=== PATIENT | male | born 1970 | race Caucasian/White ===

== ENCOUNTER 2017-06-04 21:27 | Inpatient (IN) | payer OTHER ==
[2017-06-04] MEDS ORDERED: HYDROcodone/APAP 5-325MG 1 EACH TAB PO STA (23:40)
[2017-06-04] MEDS ORDERED: SODIUM CHLORIDE 0.9% 500 ML IV ONE (23:43)
[2017-06-04] MEDS ORDERED: NALOXONE 0.4 MG/ML 1 ML VIAL IV PRN (23:54)
--- NOTE | 2017-06-04 23:54 | ED ---
General Adult HPI - General Chief complaint: Skin/Abscess/Foreign Body Stated complaint: MRSA Time Seen by Provider: 06/04/17 22:03 Source: patient, family, RN notes reviewed Mode of arrival: ambulatory Limitations: no limitations - History of Present Illness Initial comments: pastchief complaint this is a 46-year-old male to complaint of painful swelling abscess anterior surface distal left thigh. He reports he is at the clinic 4 days ago was placed on Bactrim to which she sees be having ALLERGIC reaction at this time. Also abscesses bigger and more tender. Localized redness. Patient reports she has chills and doesn't feel well. Failed outpatient treatment could well be MRSA. He's never had MRSA in the past. - Related Data Home Medications Medication Instructions Recorded Confirmed Sulfamethox-Tmp 800-160Mg [Bactrim 1 tab PO Q12HR 06/04/17 06/04/17 DS 800-160 mg] Allergies Allergy/AdvReac Type Severity Reaction Status Date / Time No Known Allergies Allergy Verified 06/04/17 22:03 Review of Systems ROS Statement: Those systems with pertinent positive or pertinent negative responses have been documented in the HPI. review of systems patient states she doesn't feel well has some chills abscess with local cellulitis distal anterior surface left thigh. This needs to be incised and drained. He's been on Bactrim 4 days in the infection is not getting better. In fact the patient is having probable ALLERGIC reaction to the sulfa. No difficulty breathing. He does have a rash. All systems are reviewed. Past medical problems angina, GERD, hyperlipidemia occasional hypertension respiratory disorder. No known ALLERGIES. and now appears as though he may have an ALLERGY to sulfa. Surgeries appendectomy, hernia repair, multiple knee surgeries. Left ear surgery. ROS Other: All systems not noted in ROS Statement are negative. Past Medical History Past Medical History: Chest Pain / Angina, Diabetes Mellitus, GERD/Reflux, Hyperlipidemia, Hypertension, Respiratory Disorder Additional Past Medical History / Comment(s): dx February 2014 pleurisy, acute bronchitis,migraines, states had chest pains from pleurisy, borderline diabetic History of Any Multi-Drug Resistant Organisms: MRSA Date of last positivie culture/infection: 2016 MDRO Source:: left thigh Past Surgical History: Appendectomy, Hernia Repair, Orthopedic Surgery Additional Past Surgical History / Comment(s): left ear removed (tumor), robinson knee surgeries, Past Anesthesia/Blood Transfusion Reactions: Previous Problems w/ Anesthesia Additional Past Anesthesia/Blood Transfusion Reaction / Comment(s): takes longer to come out Past Psychological History: No Psychological Hx Reported Smoking Status: Current every day smoker Past Alcohol Use History: Occasional Past Drug Use History: None Reported General Exam - General Exam Comments Initial Comments: General: The patient is awake and alert,complaint a sensation of chills not feeling well. He has an abscess to his left anterior thigh. Vital signs temp 98.8 pulse 74 respiratory rate 18 pulse ox 97% room air blood pressure 163/89 Cardiovascular: There is a regular rate and rhythm. No murmur, rub or gallop is appreciated. Respiratory: Lungs are clear to auscultation, respirations are non-labored, breath sounds are equal. No wheezes, stridor, rales, or rhonchi. Gastrointestinal: no abdominal pain. Back: no back pain Musculoskeletal: enlarging abscess left anterior thigh. Hot red tender localized cellulitis. Neurological: no neuro deficits Skin is warm painful to touch as above Limitations: no limitations Course Vital Signs 06/04/17 06/04/17 21:28 22:31 Temperature 98.8 F 100.5 F H Pulse Rate 74 Respiratory 18 Rate Blood Pressure 163/89 O2 Sat by Pulse 97 Oximetry Procedures - Procedures Initial comment: procedure; using a sterile technique. 1% Xylocaine was used to numb the area. #18 needle was used to locate the abscess. Fluid was drained off and sent for pathology. #11 blade was used to make a stellate incision. Another one half teaspoon of purulent material removed. Sterile bandage applied after the wound was packed. Dr. Caraballo Medical Decision Making - Medical Decision Making the patient has been told to stop taking the Bactrim. He'll be admitted the hospital on vancomycin. I discussed the case with Dr. Rodrigues on-call for Dr. Dorman. Disposition Clinical Impression: Abscess of left thigh Disposition: ADMITTED IP TO THIS HOSP Condition: Fair Referrals: La Dorman DO [Primary Care Provider] - 1-2 days
[2017-06-05] MEDS: SODIUM CHLORIDE 0.9% 1,000 ML IV SCH ×6 (00:13→21:06)
[2017-06-05] MEDS ORDERED: IV VANCOMYCIN PER PHARMACY 1 EACH MISC MISCELLANE SCH (00:15)
[2017-06-05 00:28] LABS: Basophils % (A) 1 %; CH 35.4; CHCM 34.9; Eosinophils # (A) 0.4 k/uL (0-0.7); Eosinophils % (A) 8 %; HCT 47.8 % (39.0-53.0); HDW 2.24; HGB 15.9 gm/dL (13.0-17.5); Luc # (Auto) 0.06; Luc % (Auto) 1; Lymphocytes # (A) 0.4 k/uL (1.0-4.8); Lymphocytes % (A) 8 %; MCH 33.9 pg (25.0-35.0); MCHC 33.2 g/dL (31.0-37.0); MCV 101.8 fL (80.0-100.0); Macrocytosis Slight; Mean Platelet Volume 7.3; Monocytes # (A) 0.3 k/uL (0-1.0); Monocytes % (A) 6 %; Neutrophils % (A) 77 %; RBC 4.69 m/uL (4.30-5.90); RDW 13.6 % (11.5-15.5); WBC 5.3 k/uL (3.8-10.6); WBC (Perox) 5.16
[2017-06-05] MEDS ORDERED: ACETAMINOPHEN TAB 325 MG TAB PO STA (00:28)
[2017-06-05] MEDS: ACETAMINOPHEN TAB 325 MG TAB PO PRN ×2 (00:30→19:25)
[2017-06-05 00:38] LABS: ALT 61 U/L (21-72); AST 46 U/L (17-59); Alkaline Phosphatase 69 U/L (38-126); Anion Gap 13 mmol/L; Blood Urea Nitrogen 10 mg/dL (9-20); Calcium 9.2 mg/dL (8.4-10.2); Carbon Dioxide 23 mmol/L (22-30); Chloride 101 mmol/L (98-107); Glucose 94 mg/dL (74-99); Non-African American GFR(MDRD) >60 (>60 ml/min/1.73 sqM); Potassium 4.1 mmol/L (3.5-5.1); Sodium 137 mmol/L (137-145); Total Bilirubin 0.5 mg/dL (0.2-1.3); Total Protein 6.9 g/dL (6.3-8.2)
[2017-06-05] MEDS ORDERED: VANCOMYCIN 1,500 MG in SODIUM CHLORIDE 0.9% 250 ML IVPB ONE (01:00)
[2017-06-05 02:16] VITALS: BMI 23.7
[2017-06-05] MEDS: HYDROmorphone 1 MG/ML 1 ML SYRINGE IV PRN ×2 (02:41→12:53)
[2017-06-05 07:17] LABS: Glucose,Whole Blood 84 mg/dL (75-99)
[2017-06-05] MEDS: VANCOMYCIN 1,500 MG in SODIUM CHLORIDE 0.9% 250 ML IVPB SCH ×2 (08:27→19:29)
[2017-06-05 11:58] LABS: Glucose,Whole Blood 96 mg/dL (75-99)
--- NOTE | 2017-06-05 12:08 | P.HPIM ---
History of Present Illness H&P Date: 06/05/17 Chief Complaint: left thigh swelling and redness this is a 46-year-old gentleman with no significant past medical history who presented to the emergency room with worsening redness, swelling, and pain involving his left thigh. Patient said that he noticed the redness a few days ago all of a sudden. He denies any trauma, wound, or pustular formation. He said that he was only red and inflamed and he went to see his primary care presented physician who prescribed him a course of Bactrim. Patient said that he had some reaction to the antibiotic was not able to take it as prescribed. He also noted that his thighs getting more red and swollen. He was having a lot of pain. He decided to come to the emergency room for further evaluation. And he was found to have evidence of abscess formation involving the anterior aspect of the left thigh. He had an I&D performed in the emergency room and the wound is currently packed. There is significant redness surrounding the wound. Skin is warm to touch with moderate tenderness. There is currently on broad-spectrum antibiotic with vancomycin. Review of Systems Review of system: 14 points review of systems were obtained and were negative except to what were mentioned in the HPI. Past Medical History Past Medical History: Chest Pain / Angina, Diabetes Mellitus, GERD/Reflux, Hyperlipidemia, Hypertension, Respiratory Disorder Additional Past Medical History / Comment(s): dx February 2014 pleurisy, acute bronchitis,migraines, states had chest pains from pleurisy, borderline diabetic History of Any Multi-Drug Resistant Organisms: MRSA Date of last positivie culture/infection: 2016 MDRO Source:: left thigh Past Surgical History: Appendectomy, Hernia Repair, Orthopedic Surgery Additional Past Surgical History / Comment(s): left ear removed (tumor), robinson knee surgeries, Past Anesthesia/Blood Transfusion Reactions: Previous Problems w/ Anesthesia Additional Past Anesthesia/Blood Transfusion Reaction / Comment(s): takes longer to come out Past Psychological History: No Psychological Hx Reported Smoking Status: Current every day smoker Past Alcohol Use History: Occasional Past Drug Use History: None Reported - Past Family History Mother Family Medical History: No Reported History Medications and Allergies Home Medications Medication Instructions Recorded Confirmed Type Sulfamethox-Tmp 800-160Mg [Bactrim 1 tab PO Q12HR 06/04/17 06/04/17 History DS 800-160 mg] Allergies Allergy/AdvReac Type Severity Reaction Status Date / Time sulfamethoxazole Allergy Rash/Hives Verified 06/05/17 02:09 [From Bactrim] trimethoprim [From Bactrim] Allergy Rash/Hives Verified 06/05/17 02:09 Physical Exam Vitals: Vital Signs Temp Pulse Pulse Resp BP BP BP 06/05/17 07:00 99.6 F 82 16 119/76 06/05/17 02:07 99.3 F 82 16 121/56 06/05/17 01:31 101.2 F H 93 18 139/64 06/05/17 00:20 102.6 F H 84 20 165/74 06/04/17 22:31 100.5 F H 06/04/17 21:28 98.8 F 74 18 163/89 Pulse Ox 06/05/17 07:00 95 06/05/17 02:07 95 06/05/17 01:31 95 06/05/17 00:20 99 06/04/17 22:31 06/04/17 21:28 97 Intake and Output 06/04/17 06/05/17 06/05/17 22:59 06:59 14:59 Intake Total 1150 Balance 1150 Intake: Intake, IV Titration 750 Amount Vancomycin 1,500 mg In 750 Sodium Chloride 0.9% 250 ml @ 125 mls/hr IVPB Q12H [facility] Rx#:[id number] Oral 400 Other: Weight 79.379 kg 79.379 kg General: The patient is awake and alert, in no distress Eye: there is normal conjunctiva bilaterally. Neck: The neck is supple, there is no JVD. Cardiovascular: Normal S1-S2, no S3-S4, no murmurs. Respiratory: Lungs clear to auscultation bilaterally Gastrointestinal: Abdomen is soft, nontender Musculoskeletal: There is no pedal edema. Neurological:. Speech is normal. Skin: as noted in HPI Results CBC & Chem 7: 06/05/17 00:15 06/05/17 00:15 Labs: Abnormal Lab Results - Last 24 Hours (Table) 06/05/17 Range/Units 00:15 MCV 101.8 H (80.0-100.0) fL Lymphocytes # 0.4 L (1.0-4.8) k/uL Microbiology - Last 24 Hours (Table) 06/04/17 23:35 Wound Culture - Preliminary Leg - Left Thrombosis Risk Factor Assmnt - Choose All That Apply Each Factor Represents 1 point: Age 41-60 years Other Risk Factors: No Other congenital or acquired thrombophilia - If yes, enter type in comment: No Thrombosis Risk Factor Assessment Total Risk Factor Score: 1 Thrombosis Risk Factor Assessment Level: Low Risk Assessment and Plan Plan: 1. Left thigh abscess with surrounding cellulitis 2. Sepsis on presentation Today, I reviewed his medication list lab work results. Will continue broad spectrum antibiotic with IV vancomycin. Continue IV fluids. Awaiting blood culture. Pain control. I would consult infectious disease for further evaluation. Patient was updated about his current medical condition.
[2017-06-05 17:14] LABS: Glucose,Whole Blood 112 mg/dL (75-99)
[2017-06-05 20:54] LABS: Glucose,Whole Blood 124 mg/dL (75-99)
[2017-06-05] MEDS: HEPARIN SODIUM,PORCINE 5,000 UNIT/ML 1 ML VIAL SQ SCH (21:29)
[2017-06-06] MEDS: HYDROmorphone 1 MG/ML 1 ML SYRINGE IV PRN ×2 (05:07→08:29)
[2017-06-06] MEDS: SODIUM CHLORIDE 0.9% 1,000 ML IV SCH ×4 (06:56→18:01)
[2017-06-06] MEDS: VANCOMYCIN 1,500 MG in SODIUM CHLORIDE 0.9% 250 ML IVPB SCH ×2 (07:01→21:51)
[2017-06-06 07:48] LABS: Glucose,Whole Blood 99 mg/dL (75-99)
[2017-06-06] MEDS: HEPARIN SODIUM,PORCINE 5,000 UNIT/ML 1 ML VIAL SQ SCH ×2 (08:23→22:01)
[2017-06-06] MEDS ORDERED: HYDROmorphone 1 MG/ML 1 ML SYRINGE IV PRN (09:10)
--- NOTE | 2017-06-06 09:17 | P.PN ---
Subjective Patient presented with a left thigh abscess and underwent I&D in the emergency room. Patient was started on Bactrim outpatient had some type of reaction. Bactrim was discontinued. He's currently on IV vancomycin. Infectious disease is following. Awaiting blood culture and wound culture results. Patient has had some improvement in the surrounding cellulitis. He is afebrile this morning. Denies any chest pain or shortness of breath. Denies any nausea or vomiting. Urinating without difficulty. No bowel movement 2 days. Objective - Vital Signs Vital signs: Vital Signs Temp 97.7 F 06/06/17 07:00 Pulse 50 L 06/06/17 07:00 Resp 16 06/06/17 07:00 BP 116/71 06/06/17 07:00 Pulse Ox 97 06/06/17 07:00 Intake & Output 06/05/17 06/06/17 06/06/17 18:59 06:59 18:59 Intake Total 2970 2175 Balance 2970 2175 Intake: Intake, IV Titration 950 1375 Amount Sodium Chloride 0.9% 1, 700 000 ml @ 100 mls/hr IV . Q10H [facility] Rx#:[id number] Vancomycin 1,500 mg In 250 1375 Sodium Chloride 0.9% 250 ml @ 125 mls/hr IVPB Q12H [facility] Rx#:[id number] Oral 2020 800 Other: # Voids 3 - Exam Head normocephalic Neck supple Lungs a few coarse breath sounds Heart regular rate and rhythm S1-S2, no rub or gallop Abdomen is soft nontender nondistended positive bowel sounds no hepatosplenomegaly Extremities no edema. Left thigh cellulitis area showing improvement. I do form dressing bandage in place. Abscess is soft. Neuro alert and orientated to 3 - Labs CBC & Chem 7: 06/05/17 00:15 06/05/17 00:15 Labs: Abnormal Lab Results - Last 24 Hours (Table) 06/05/17 06/05/17 Range/Units 17:09 20:52 POC Glucose (mg/dL) 112 H 124 H (75-99) mg/dL Microbiology - Last 24 Hours (Table) 06/05/17 00:15 Blood Culture - Preliminary Blood No Growth after 24 hours 06/04/17 23:35 Gram Stain - Preliminary Leg - Left Wound Culture - Preliminary Assessment and Plan Plan: 1. Left thigh abscess with surrounding cellulitis. Status post I&D in the emergency room. Showing improvement. Wound culture and blood culture pending. Continue IV vancomycin. Await further infectious disease recommendations. 2. Sepsis on presentation secondary to left thigh abscess with cellulitis. Continue antibiotics IV fluids. Patient afebrile this morning 3. History of borderline diabetes mellitus. Monitor blood sugars before meals and at bedtime. Checking hgbA1c. Continue sliding coverage as needed. Blood sugars are currently stable 4. Nicotine dependence: Discussed smoking cessation. Patient refusing nicotine patch at this point 5. Pain control: Change IV Dilaudid to every 6 hours as needed for breakthrough pain. Add [place] 5/325 one by mouth every 4 hours as needed for pain DVT prophylaxis subcu heparin I performed an examination of the patient and discussed their management with the physician Forensic Artist. I have reviewed the Physician Forensic Artist's notes and agree with the documented findings and plan of care
--- NOTE | 2017-06-06 10:06 | CONS ---
DATE OF CONSULTATION: 06/05/2017 REASON FOR CONSULTATION: MRSA left thigh abscess and possible ( ). HISTORY OF PRESENT ILLNESS: The patient is a 46-year-old male who apparently did develop an area of swelling and redness to the left anterior thigh area. The patient thought started like a small pimple and has gradually increased in size for which the patient went to the outpatient clinic where the patient did have drainage of this abscess and the patient has been treated with Bactrim. The patient has been called yesterday that the culture was positive for MRSA. The area was still getting more painful, red and swollen. The pain was described as throbbing 6 to 7 out of 10 and no radiation. Slight drainage. He was advised to go to the ER. The patient on arrival to the ER was noticed to have significant rash secondary to Bactrim. Hence the patient has been started on Vancomycin in the hospital and I was asked to see the patient today for further recommendation regarding antibiotic therapy. REVIEW OF SYSTEMS: Constitutional: Positive for weakness but no high grade fever. EYES: No complaint. HEENT: No complaint. Respiratory: No complaint. Cardiovascular: No complaint. : As per history of present illness. Gastrointestinal: No complaint. Musculoskeletal: As per HPI. Integumentary: As per HPI. Psychological: No complaint. Endocrine: No complaint. Neurological: No complaint. Past medical history significant for diabetes mellitus, gastroesophageal reflux disease, hypertension, hyperlipidemia, bronchitis, migraine, hepatitis C and previous history of left thigh MRSA infection. Past surgical history: Appendectomy, hernia repair, left ear tumor removed. Bilateral knee arthroscopy. SOCIAL HISTORY: Current every day smoker. ( ) no drinking or drug use. FAMILY HISTORY: No pertinent findings were noticed. ALLERGIES: BACTRIM WITH A RASH. Medications include the patient is currently on: 1. Vancomycin pharmacy to dose. 2. Tylenol. 3. Heparin. 4. Narcan. On examination, blood pressure is 132/74 with a pulse of 76. Temperature 98.4. He is 93% on room air. General description is a middle age male lying in bed, in no distress. No tachypnea or accessory muscles of respiration use. HEENT: Examination shows no pallor and no sclera icterus. Oral mucosa membranes moist. NECK: Trachea is central. No thyromegaly. LUNGS: Unlabored breathing. Clear to auscultation anteriorly. HEART: S1, S2 regular rate and rhythm. ABDOMEN: Soft. No tenderness. No guarding and no rigidity. EXTREMITIES: Left thigh with swelling, redness and ( ) no significant induration. No drainage was noticed. Slightly warm to touch and tender. NEUROLOGICALLY: The patient is awake, alert and oriented times two. Mood and affect normal. LABS: Hemoglobin 15.1, white count 5.3, BUN 10, creatinine 1.0. Electrolytes have been normal. Liver enzymes normal. Wound cultures in the outpatient setting with MRSA. DIAGNOSTIC IMPRESSION AND PLAN: The patient with MRSA left thigh abscess status post drainage with significant cellulitis. Cultures outpatient with MRSA. The patient had been treated with Bactrim. Unfortunately developed a rash to it. PLAN: 1. Recommend keeping the patient on IV Vancomycin at least for another 24 hours. If the patient has significant improvement, we will plan to finish therapy with oral doxycycline. 2. Aquacel silver packing of the wound. 3. We will follow-up on clinical condition as well as culture to further adjust medications if needed. Thank you for this consultation. We will follow this patient along with you. LOYDA
[2017-06-06 12:19] LABS: Glucose,Whole Blood 134 mg/dL (75-99)
[2017-06-06 12:33] LABS: Hemoglobin A1C 5.5 % (4.2-6.1)
[2017-06-06] MEDS: INSULIN LISPRO (humaLOG) 300 UNIT/3 ML VIAL SQ SCH ×3 (12:51→21:52)
[2017-06-06 17:54] LABS: Glucose,Whole Blood 109 mg/dL (75-99)
[2017-06-06] MEDS ORDERED: VANCOMYCIN TROUGH DUE 1 EACH MISC MISCELLANE ONE (18:00)
[2017-06-06 20:32] LABS: Glucose,Whole Blood 120 mg/dL (75-99)
[2017-06-06 21:49] VITALS: TEMP 97.4
[2017-06-06] MEDS: HYDROcodone/APAP 5-325MG 1 EACH TAB PO PRN (21:50)
[2017-06-07] MEDS: SODIUM CHLORIDE 0.9% 1,000 ML IV SCH ×3 (02:59→16:24)
[2017-06-07 07:13] LABS: Glucose,Whole Blood 97 mg/dL (75-99)
--- NOTE | 2017-06-07 07:34 | PN ---
DATE OF SERVICE: 06/06/2017 Reason for followup is left thigh MRSA abscess and cellulitis. INTERVAL HISTORY: The patient is afebrile. Has been breathing comfortably. The patient denies any significant chest pain or shortness of breath or cough. Pain to the left thigh is currently controlled. No nausea, vomiting, or any diarrhea. On examination, blood pressure 116/71 with a pulse of 50, temperature is 97.7, he is 97% on room air. General description is a middle-aged male lying in bed in no distress. RESPIRATORY SYSTEM: Unlabored breathing, clear to auscultation anteriorly. HEART: S1, S2, regular rate and rhythm. ABDOMEN: Soft, no tenderness. Left thigh swelling and redness had improved. DIAGNOSTIC IMPRESSION AND PLAN: Patient with left thigh methicillin-resistant Staphylococcus aureus and cellulitis, status post drainage in the outpatient setting. Patient did develop rash to the Bactrim. He is currently improving on the vancomycin. Will keep the patient on vancomycin today and the patient continued to improve, hopefully finish therapy with p.o. doxycycline. Continue supportive care. LOYDA
[2017-06-07 07:37] VITALS: BP 133/84; PULSE 51
[2017-06-07] MEDS: VANCOMYCIN 1,500 MG in SODIUM CHLORIDE 0.9% 250 ML IVPB SCH (07:48)
[2017-06-07 07:49] LABS: Basophils # (A) 0.1 k/uL (0-0.2); Basophils % (A) 1 %; CH 34.1; CHCM 33.5; Eosinophils # (A) 0.6 k/uL (0-0.7); Eosinophils % (A) 10 %; HCT 46.1 % (39.0-53.0); HDW 2.37; HGB 15.7 gm/dL (13.0-17.5); Luc # (Auto) 0.19; Luc % (Auto) 3; Lymphocytes # (A) 2.2 k/uL (1.0-4.8); Lymphocytes % (A) 37 %; MCH 34.8 pg (25.0-35.0); MCHC 34.1 g/dL (31.0-37.0); Macrocytosis Slight; Mean Platelet Volume 6.9; Monocytes # (A) 0.3 k/uL (0-1.0); Monocytes % (A) 5 %; Neutrophils # (A) 2.7 k/uL (1.3-7.7); Neutrophils % (A) 45 %; RBC 4.52 m/uL (4.30-5.90); RDW 12.7 % (11.5-15.5); WBC 5.9 k/uL (3.8-10.6); WBC (Perox) 5.92
[2017-06-07] MEDS: INSULIN LISPRO (humaLOG) 300 UNIT/3 ML VIAL SQ SCH (07:52)
[2017-06-07 08:16] LABS: Anion Gap 6 mmol/L; Blood Urea Nitrogen 9 mg/dL (9-20); Calcium 8.6 mg/dL (8.4-10.2); Carbon Dioxide 28 mmol/L (22-30); Chloride 106 mmol/L (98-107); Glucose 87 mg/dL (74-99); Non-African American GFR(MDRD) >60 (>60 ml/min/1.73 sqM); Potassium 4.5 mmol/L (3.5-5.1); Sodium 140 mmol/L (137-145)
[2017-06-07] MEDS: HEPARIN SODIUM,PORCINE 5,000 UNIT/ML 1 ML VIAL SQ SCH (08:57)
[2017-06-07] MEDS: HYDROcodone/APAP 5-325MG 1 EACH TAB PO PRN (11:21)
[2017-06-07 11:38] LABS: Glucose,Whole Blood 137 mg/dL (75-99)
--- NOTE | 2017-06-07 14:54 | P.DS ---
Providers Date of admission: 06/04/17 23:54 Expected date of discharge: 06/07/17 Attending physician: Alvarez Rodrigues Consults: 06/05/17 10:56 Consult Physician Routine Consulting Provider: Val Howe Consult Reason/Comments: abscess Do you want consulting provider notified?: Yes Primary care physician: La Dorman [facility] Course: Discharge diagnosis 1. Left thigh abscess with surrounding cellulitis. Status post I&D in the emergency room. Showing improvement. Wound culture growing presumptive MRSA and blood cultures remain negative. Infectious diseases recommending doxycycline at discharge 2. Sepsis on presentation secondary to left thigh abscess with cellulitis. Continue antibiotics IV fluids. Patient afebrile this morning 3. History of borderline diabetes mellitus. Monitor blood sugars before meals and at bedtime. Humulin A1c 5.5 . Blood sugar stable. Patient only required one unit of insulin during the admission 4. Nicotine dependence: Discussed smoking cessation. Patient refusing nicotine patch at this point Hospital course Patient presented with a left thigh abscess and underwent I&D in the emergency room. Patient was started on Bactrim outpatient had some type of reaction. Bactrim was discontinued. He's currently on IV vancomycin. Infectious disease is following. Awaiting blood culture and wound culture results. Patient has had some improvement in the surrounding cellulitis. Patient followed by infectious disease. Wound culture grew presumptive MRSA. Infectious diseases recommending doxycycline 100 mg every 12 hours for 10 days. They also recommending Aquasol Silver rope placed to the wound to be changed every 48 hours. Patient will be following up with ID service in 1 week outpatient. Patient's symptoms have improved. He is afebrile. He is medically stable for discharge. Please refer to chart for any further details Patient Condition at Discharge: Stable Plan - Discharge Summary New Discharge Prescriptions: New Doxycycline Monohydrate [Monodox] 100 mg PO Q12HR #20 cap HYDROcodone/APAP 5-325MG [[place] 5-325] 1 each PO Q8HR PRN #10 tab PRN Reason: Pain Discontinued Sulfamethox-Tmp 800-160Mg [Bactrim DS 800-160 mg] 1 tab PO Q12HR Discharge Medication List Doxycycline Monohydrate [Monodox] 100 mg PO Q12HR #20 cap 06/06/17 [Rx] HYDROcodone/APAP 5-325MG [[place] 5-325] 1 each PO Q8HR PRN #10 tab 06/07/17 [Rx] Follow up Appointment(s)/Referral(s): Val Howe MD [STAFF PHYSICIAN] - 1 Week La Dorman DO [Primary Care Provider] - 1 Week Activity/Diet/Wound Care/Special Instructions: Diet: diabetic Activity: as tolerated Patient to PAC abscess with Aquacel silver and change dressing every 48 hours Discharge Disposition: HOME SELF-CARE
[2017-06-07 16:33] VITALS: RESP 18
[2017-06-07] MEDS ORDERED: VANCOMYCIN 1,750 MG in SODIUM CHLORIDE 0.9% 250 ML IVPB SCH (18:00)
--- NOTE | 2017-06-08 09:03 | PN ---
DATE OF SERVICE: 06/07/2017 REASON FOR FOLLOW UP: Left thigh MRSA infection. INTERVAL HISTORY: The patient is afebrile. He has been feeling better, breathing comfortably. Left thigh pain and swelling has improved. No drainage. Denies significant chest pain or shortness of breath or cough. On examination: Blood pressure 133/84 with pulse 81. Temperature 97.4. He is 96 % on room air. General description is a middle aged male lying in bed in no distress. RESPIRATORY: Unlabored breathing. Clear to auscultation anteriorly. HEART: S1, S2 regular rate and rhythm. ABDOMEN: Soft, no tenderness. EXTREMITIES: Left thigh overall redness is improved. LABS: Hemoglobin is 15.7, white count 5.9 with BUN 9, creatinine 0.85. DIAGNOSTIC IMPRESSION AND PLAN: Patient with MRSA left thigh abscess and cellulitis status post outpatient drainage. Patient developed allergic reaction to Bactrim currently on vancomycin that was switched to doxycycline 100 mg twice a day for 10 days with outpatient follow up. MTDD
== END 2017-06-07 16:20 | disposition home or self-care (01) | DRG 872 ==
LOC: EC 21:27 → 5MS5E 23:54 → OBSVTOIN 23:54 → 5MS5E 06-05 01:12
PROVIDERS: ADMIT Internal Medicine; ATTEND Internal Medicine
PROC: 0Y980ZZ Drainage of Left Femoral Region, Open Approach (ICD-10-PCS; principal; 2017-06-04)
PROC: 0H9JXZX Drainage of Left Upper Leg Skin, External Approach, Diagnostic (ICD-10-PCS; 2017-06-04)
DX: A41.9 Sepsis, unspecified organism (principal); I10 Essential (primary) hypertension; L02.416 Cutaneous abscess of left lower limb; L03.116 Cellulitis of left lower limb; B95.62 Methicillin resistant Staphylococcus aureus infection as the cause of diseases classified elsewhere; F17.200 Nicotine dependence, unspecified, uncomplicated; K21.9 Gastro-esophageal reflux disease without esophagitis; E78.5 Hyperlipidemia, unspecified; G43.909 Migraine, unspecified, not intractable, without status migrainosus; L27.0 Generalized skin eruption due to drugs and medicaments taken internally; T37.0X5A Adverse effect of sulfonamides, initial encounter; E11.9 Type 2 diabetes mellitus without complications; Z88.2 Allergy status to sulfonamides; Z88.8 Allergy status to other drugs, medicaments and biological substances
CPT/HCPCS: 10061; 36415; 80048; 80053; 80202; 83036; 83605; 85025; 87040; 87070; 87077; 87186; 87205; 96361; 96365; 99284

== ENCOUNTER 2019-06-20 20:21 | Inpatient (IN) | payer OTHER ==
[2019-06-20] MEDS ORDERED: NALOXONE 0.4 MG/ML 1 ML VIAL IV PRN (21:58)
[2019-06-20] MEDS ORDERED: KETOROLAC 30 MG/ML 1 ML VIAL IVP STA (22:05)
[2019-06-20] MEDS ORDERED: HYDROmorphone 0.5 MG/0.5 ML SYRINGE IVP STA (22:06)
[2019-06-20] MEDS ORDERED: VANCOMYCIN IV PER PHARMACY 1 EACH MISC MISCELLANE PRN (22:06)
[2019-06-20] MEDS ORDERED: PIPERACILLIN-TAZOBACTAM 3.375 GM in SODIUM CHLORIDE 0.9% 100 ML IVPB STA (22:06)
--- NOTE | 2019-06-20 22:08 | ED ---
General Adult HPI - General Chief complaint: Recheck/Abnormal Lab/Rx Stated complaint: LEFT HAND/INDEX FINGER INJURY Time Seen by Provider: 06/20/19 20:24 Source: EMS Mode of arrival: EMS Limitations: no limitations - History of Present Illness Initial comments: 48-year-old male patient presents to the emergency department today as a transfer from [facility] for evaluation of swelling, redness, and increased pain to the left index finger. Patient states last Saturday he injured the finger in a fan on a vehicle. States he presented to [facility] on Saturday and had 9 sutures placed to the finger. He was started on antibiotics for possible open fracture and tendon injury. Patient states over the last 24 hours he has had increased pain, swelling, and redness over the finger and hand for which he went back to [facility] ER today. States he has significant pain with any movement of the finger. Patient denies any fever or chills. Denies any drainage from the wound. Patient denies any recent rash, shortness breath, chest pain, abdominal pain, nausea, vomiting, diarrhea, constipation, back pain, numbness, tingling, dizziness, weakness, hematuria, dysuria, urinary urgency, urinary frequency, headache, visual changes, or any other complaints. - Related Data Previous Rx's Medication Instructions Recorded Doxycycline Monohydrate [Monodox] 100 mg PO Q12HR #20 cap 06/06/17 HYDROcodone/APAP 5-325MG [[place] 1 each PO Q8HR PRN #10 tab 06/07/17 5-325] Allergies Allergy/AdvReac Type Severity Reaction Status Date / Time sulfamethoxazole Allergy Rash/Hives Verified 06/20/19 22:28 [From Bactrim] trimethoprim [From Bactrim] Allergy Rash/Hives Verified 06/20/19 22:28 Review of Systems ROS Statement: Those systems with pertinent positive or pertinent negative responses have been documented in the HPI. ROS Other: All systems not noted in ROS Statement are negative. Past Medical History Past Medical History: Chest Pain / Angina, Diabetes Mellitus, GERD/Reflux, Hyperlipidemia, Hypertension, Respiratory Disorder Additional Past Medical History / Comment(s): dx February 2014 pleurisy, acute bronchitis,migraines, states had chest pains from pleurisy, borderline diabetic History of Any Multi-Drug Resistant Organisms: MRSA Date of last positivie culture/infection: 06/04/17 MDRO Source:: leg Past Surgical History: Appendectomy, Hernia Repair, Orthopedic Surgery Additional Past Surgical History / Comment(s): left ear removed (tumor), robinson knee surgeries, Past Anesthesia/Blood Transfusion Reactions: Previous Problems w/ Anesthesia Additional Past Anesthesia/Blood Transfusion Reaction / Comment(s): takes longer to come out Past Psychological History: No Psychological Hx Reported Smoking Status: Current every day smoker Past Alcohol Use History: Occasional Past Drug Use History: None Reported - Past Family History Mother Family Medical History: No Reported History General Exam Limitations: no limitations General appearance: alert, in no apparent distress, other (Physical well- developed, well-nourished adult male patient in no acute distress. Vital signs upon presentation are temperature 98.0F, pulse 56, respirations 16, blood pressure 188/125, pulse ox 99% on room air.) Eye exam: Present: normal appearance, PERRL, EOMI. Absent: scleral icterus, conjunctival injection, periorbital swelling ENT exam: Present: normal exam, normal oropharynx, mucous membranes moist Respiratory exam: Present: normal lung sounds bilaterally. Absent: respiratory distress, wheezes, rales, rhonchi, stridor Cardiovascular Exam: Present: regular rate, normal rhythm, normal heart sounds. Absent: systolic murmur, diastolic murmur, rubs, gallop, clicks Extremities exam: Present: full ROM, normal capillary refill, other (Swelling involving the left index finger and dorsal left hand. Hand is hot to touch. Patient exhibits pain with passive flexion, pain to percussion, uniform swelling, and finger rests in flexed position. Radial pulse is 2+ and equal bilateral. ). Absent: normal inspection, tenderness, pedal edema, joint swelling, calf tenderness Neurological exam: Present: alert, oriented X3, CN II-XII intact Psychiatric exam: Present: normal affect, normal mood Skin exam: Present: warm, dry, intact, normal color. Absent: rash Course Vital Signs 06/20/19 20:28 Temperature 98 F Pulse Rate 56 L Respiratory 16 Rate Blood Pressure 188/125 O2 Sat by Pulse 99 Oximetry Medical Decision Making - Medical Decision Making 48-year-old male patient presents to the emergency department today for evaluation of infection and swelling to the left index finger and hand. Patient had sutures placed of left index finger on Saturday. Physical examination did reveal swelling to the left index finger and dorsal aspect of the left hand. Positive Kanavel's signs concerning for flexor tenosynovitis. He is afebrile. Patient does have elevated BP, states he used to take something for BP, but not any longer. We will start lisinopril 20mg for this here. Also, started vancomycin and zosyn. Pain management will be provided. Dr. Waterman agreed to be consulted. He'll be admitted to medicine. Disposition Clinical Impression: Finger infection, Cellulitis Disposition: ADMITTED IP TO THIS HOSP Condition: Serious Referrals: Braden Alvarenga MD [Primary Care Provider] - 1-2 days Decision to Admit Reason: Admit from EC Decision Date: 06/20/19 Decision Time: 22:08
[2019-06-20] MEDS: SODIUM CHLORIDE 0.9% 1,000 ML IV SCH (22:17)
[2019-06-20] MEDS ORDERED: LISINOPRIL 20 MG TAB PO STA (22:34)
[2019-06-20] MEDS ORDERED: VANCOMYCIN 1,250 MG in SODIUM CHLORIDE 0.9% 250 ML IVPB ONE (23:00)
[2019-06-20] MEDS ORDERED: ONDANSETRON 4 MG/2 ML VIAL IVP PRN (23:01)
[2019-06-20] MEDS ORDERED: HYDROmorphone 1 MG/ML 1 ML SYRINGE IVP PRN (23:01)
[2019-06-21] MEDS: KETOROLAC 30 MG/ML 1 ML VIAL IVP SCH ×5 (01:21→23:05)
[2019-06-21] MEDS: PIPERACILLIN-TAZOBACTAM 3.375 GM in SODIUM CHLORIDE 0.9% 100 ML IVPB SCH ×3 (06:07→23:06)
[2019-06-21 07:43] LABS: Basophils # (A) 0.1 k/uL (0-0.2); Basophils % (A) 1 %; Eosinophils # (A) 0.3 k/uL (0-0.7); Eosinophils % (A) 4 %; HCT 45.8 % (39.0-53.0); HGB 15.8 gm/dL (13.0-17.5); Lymphocytes # (A) 1.8 k/uL (1.0-4.8); Lymphocytes % (A) 26 %; MCH 34.5 pg (25.0-35.0); MCHC 34.6 g/dL (31.0-37.0); MCV 99.8 fL (80.0-100.0); Mean Platelet Volume 6.7; Monocytes # (A) 0.3 k/uL (0-1.0); Monocytes % (A) 5 %; Neutrophils # (A) 4.3 k/uL (1.3-7.7); Neutrophils % (A) 63 %; Platelet Count 283 k/uL (150-450); RBC 4.59 m/uL (4.30-5.90); RDW 12.8 % (11.5-15.5); WBC 6.9 k/uL (3.8-10.6)
[2019-06-21 08:21] LABS: ALT 42 U/L (21-72); AST 35 U/L (17-59); African American GFR (CKD) >90 (>60 ml/min/1.73 sqM); Albumin 3.6 g/dL (3.5-5.0); Alkaline Phosphatase 46 U/L (38-126); Anion Gap 7 mmol/L; Blood Urea Nitrogen 9 mg/dL (9-20); Calcium 8.6 mg/dL (8.4-10.2); Carbon Dioxide 27 mmol/L (22-30); Chloride 107 mmol/L (98-107); Glucose 106 mg/dL (74-99); Potassium 4.7 mmol/L (3.5-5.1); Sodium 141 mmol/L (137-145); Total Bilirubin 1.3 mg/dL (0.2-1.3); Total Protein 6.2 g/dL (6.3-8.2)
[2019-06-21] MEDS: LISINOPRIL 20 MG TAB PO SCH (08:22)
--- NOTE | 2019-06-21 10:37 | P.CNOR ---
History of Present Illness - HPI Consult date: 06/21/19 History of present illness: The patient is a very pleasant, right-hand dominant 48-year-old male with a medical history significant for smoking cigarettes who is admitted to internal medicine with a right index finger infection. According to the patient this past he cut his finger on a fan at work. There was a large open wound and he was transferred to [facility] ER. He reports having a bedside irrigation and debridement followed by wound closure in the ER. He was discharged home with instructions to follow-up with Dr. Kaden Caraballo this coming Saturday. The patient developed progressively worsening pain and swelling in the right index finger, hand and forearm. He presented back to [facility] ER last night. Apparently Dr. 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 He did not see or evaluate the patient in person, but recommended transfer to another facility where a hand surgeon was available. 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 This transfer was done without contacting me and was made by the ER physician working last night. The patient was seen in the emergency department and found to have cellulitis and concern f or a deep infection. He was admitted to internal medicine and a consult was placed orthopedics. This morning at the time of my evaluation the patient is complaining of isolated pain in the right index finger and hand. He also reports a remote history of injury to the small finger resulting in a fixed flexion contracture. He denies fevers, chills, or feelings of generalized malaise. Past Medical History Past Medical History: Chest Pain / Angina, GERD/Reflux, Hyperlipidemia, Hypertension, Respiratory Disorder Additional Past Medical History / Comment(s): dx February 2014 pleurisy, acute bronchitis,migraines, states had chest pains from pleurisy, borderline diabetic History of Any Multi-Drug Resistant Organisms: MRSA Year Discovered:: 06/04/17 MDRO Source:: leg Past Surgical History: Appendectomy, Hernia Repair, Orthopedic Surgery Additional Past Surgical History / Comment(s): left ear removed (tumor), robinson knee surgeries Past Anesthesia/Blood Transfusion Reactions: Previous Problems w/ Anesthesia Additional Past Anesthesia/Blood Transfusion Reaction / Comm: takes longer to come out Past Psychological History: No Psychological Hx Reported Smoking Status: Current every day smoker Past Alcohol Use History: Occasional Past Drug Use History: None Reported - Past Family History Mother Family Medical History: No Reported History Medications and Allergies Home Medications Medication Instructions Recorded Confirmed Type Cephalexin [Keflex] 500 mg PO QID 06/20/19 06/20/19 History Allergies Allergy/AdvReac Type Severity Reaction Status Date / Time sulfamethoxazole Allergy Rash/Hives Verified 06/20/19 22:28 [From Bactrim] trimethoprim [From Bactrim] Allergy Rash/Hives Verified 06/20/19 22:28 Physical Examination The patient is in no apparent distress and is resting comfortably in his bed. He demonstrates nonlabored breathing with symmetric chest expansion. His abdomen is nonobese. A focused examination of the patient's right upper extremity was conducted. On inspection of the hand there is a J-shaped laceration over the dorsal aspect of the PIP joint of the index finger. Nylon sutures are in place. The index finger is mildly swollen and has mild erythema. The whole hand appears dirty with dried dirt and grime on the fingers and under the fingernails. The index finger is resting in a slightly flexed position but there is no tenderness along the flexor tendon and no pain with passive extension of the finger. There is limited motion secondary to swelling. There is a fixed flexion deformity of the small finger, but the patient reports that this is chronic. Sensation is intact to light touch throughout the right index finger. There are no areas of palpable fluctuance or evidence of a discrete abscess. Results X-rays of the right hand show no obvious fractures or foreign bodies. There is fixed deformity of the small finger. - Labs Labs: Abnormal Lab Results - Last 24 Hours (Table) 06/21/19 Range/Units 07:22 Glucose 106 H (74-99) mg/dL Total Protein 6.2 L (6.3-8.2) g/dL H & H 06/21/19 Range/Units 07:22 Hgb 15.8 (13.0-17.5) gm/dL Hct 45.8 (39.0-53.0) % Result Diagrams: 06/21/19 07:22 06/21/19 07:22 Assessment and Plan (1) Cellulitis Current Visit: Yes Status: Acute Code(s): L03.90 - CELLULITIS, UNSPECIFIED SNOMED Code(s): 606476523 Plan: The patient is a 48-year-old male with a medical history significant for cigarette smoking who was admitted with mild cellulitis of the right index finger following a traumatic laceration. At the present time I do not see any evidence of deep infection requiring acute surgical intervention. I removed every other suture and was able to only express a small amount of blood from the wound. I do not see any evidence of deep infection or discrete abscess. I recommended local wound care and warm water soaks. I think he would benefit from IV antibiotics, but will defer to internal medicine for the duration of treatment. The patient questioned the need for extensor tendon repair as he was told by the ER at [facility] that there was an extensor tendon injury that may need repair, but I explained that this is nothing that needs to be done acutely. I strongly encouraged him to quit smoking and he understands that he is at an increased risk of having a complication due to his current smoking status. From my point of view the patient is okay to discharge home on oral antibiotics and can follow-up in our office with Dr. Ellison early next week. Time with Patient: Greater than 30
[2019-06-21] MEDS ORDERED: VANCOMYCIN 1,500 MG in SODIUM CHLORIDE 0.9% 250 ML IVPB SCH (13:00)
[2019-06-21] MEDS: DAPTOmycin 500 MG in SODIUM CHLORIDE 0.9% 50 ML IVPB SCH (16:42)
[2019-06-21] MEDS: MULTIVITAMINS, THERA 1 EACH TAB PO SCH (17:24)
[2019-06-21] MEDS: SODIUM CHLORIDE 0.9% 1,000 ML IV SCH ×2 (20:44→23:08)
--- NOTE | 2019-06-21 23:13 | P.HPIM ---
History of Present Illness H&P Date: 06/21/19 Chief Complaint: Left index finger infection 48-year-old male with a known history of hypertension, hyperlipidemia, borderline diabetes and GERD and also currently everyday smoker was transferred from [facility] due to increased pain and swelling and redness of the left index finger. Patient says that he did injure his left index finger in a fan while he was repairing his vehicle on last Saturday. Patient initially presented to [facility] on Saturday and had sutures placed in the right index finger. He was also started on antibiotics at that time. Patient says that he has been having worsening swelling and redness and pain over the finger with serosanguineous drainage from the sutures worsening for the past 24 hours which made him to go back to ER. Patient is also unable to flex his index finger. Patient otherwise denied any fever or chills. No chest pain or shortness of breath. No nausea vomiting or diarrhea or any other symptoms. No loss of sensation. Patient was transferred to [facility] for further evaluation by orthopedic surgery. Patient is currently on vancomycin and Zosyn. Review of Systems Constitutional: Patient denies any fever or chills . No generalized weakness or weight loss. Abdomen: Patient denied nausea vomiting and diarrhea and abdominal pain. Cardiovascular: Patient denies any chest pain or short of breath no palpitations. Respiratory: patient denied any cough is from production. No shortness of breath Neurologic: Patient denied any numbness or tingling headache. Musculoskeletal: Patient denies any complaints of joint swelling or deformity. Left index finger Skin: Negative Psychiatric: Negative Endocrine: No heat or cold intolerance. No recent weight gain. Genitourinary: No dysuria or hematuria. All other 14 point ROS negative except the above Past Medical History Past Medical History: Chest Pain / Angina, GERD/Reflux, Hyperlipidemia, Hypertension, Respiratory Disorder Additional Past Medical History / Comment(s): dx February 2014 pleurisy, acute b ronchitis,migraines, states had chest pains from pleurisy, borderline diabetic History of Any Multi-Drug Resistant Organisms: MRSA Date of last positivie culture/infection: 06/04/17 MDRO Source:: leg Past Surgical History: Appendectomy, Hernia Repair, Orthopedic Surgery Additional Past Surgical History / Comment(s): left ear removed (tumor), robinson knee surgeries Past Anesthesia/Blood Transfusion Reactions: Previous Problems w/ Anesthesia Additional Past Anesthesia/Blood Transfusion Reaction / Comment(s): takes longer to come out Past Psychological History: No Psychological Hx Reported Smoking Status: Current every day smoker Past Alcohol Use History: Occasional Past Drug Use History: None Reported - Past Family History Mother Family Medical History: No Reported History Medications and Allergies Home Medications Medication Instructions Recorded Confirmed Type Cephalexin [Keflex] 500 mg PO QID 06/20/19 06/20/19 History Allergies Allergy/AdvReac Type Severity Reaction Status Date / Time sulfamethoxazole Allergy Rash/Hives Verified 06/20/19 22:28 [From Bactrim] trimethoprim [From Bactrim] Allergy Rash/Hives Verified 06/20/19 22:28 Physical Exam Vitals: Vital Signs Temp Pulse Pulse Resp BP BP Pulse Ox 06/21/19 07:00 98.4 F 52 L 16 112/70 96 06/20/19 23:00 97.7 F 56 L 15 181/96 98 06/20/19 22:28 56 L 16 169/115 99 06/20/19 20:28 98 F 56 L 16 188/125 99 Intake and Output 06/20/19 06/21/19 06/21/19 22:59 06:59 14:59 Intake Total 1040 240 Balance 1040 240 Intake: Intake, IV Titration 560 Amount Sodium Chloride 0.9% 1, 560 000 ml @ 80 mls/hr IV . [id number] [facility] Rx#:[id number] Oral 480 240 Other: Voiding Method Toilet Weight 81.647 kg PHYSICAL EXAMINATION: Patient is lying in the bed comfortably, no acute distress, awake alert and oriented.. HEENT: Normocephalic. Neck is supple. Pupils reactive. Nostrils clear. Oral cavity is moist. Ears reveal no drainage. Neck reveals no JVD, carotid bruits, or thyromegaly. CHEST EXAMINATION: Trachea is central. Symmetrical expansion. Lung gtz clear to auscultation and percussion. CARDIAC: Normal S1, S2 with no gallops. No murmurs ABDOMEN: Soft. Bowel sounds normal. No organomegaly. No abdominal bruits. Extremities: reveal no edema. No clubbing or cyanosis Neurologically awake, alert, oriented x3 with well-coordinated movements. No focal deficits noted Skin: No rash or skin lesions. Psychiatric: Coperative. Nonsuicidal Musculoskeletal: No joint swelling or deformity. Normal range of motion. Patient does have left index finger swelling and redness and tenderness with palpation and minimal serosanguineous drainage from the sutures. Results CBC & Chem 7: 06/21/19 07:22 06/21/19 07:22 Labs: Abnormal Lab Results - Last 24 Hours (Table) 06/21/19 Range/Units 07:22 Glucose 106 H (74-99) mg/dL Total Protein 6.2 L (6.3-8.2) g/dL Thrombosis Risk Factor Assmnt - DVT/VTE Prophylaxis DVT/VTE Prophylaxis: Pharmacologic Prophylaxis ordered - Choose All That Apply Any of the Below Risk Factors Present?: Yes Each Factor Represents 1 point: Age 41-60 years Thrombosis Risk Factor Assessment Total Risk Factor Score: 1 Thrombosis Risk Factor Assessment Level: Low Risk Assessment and Plan Assessment: Left index finger cellulitis extending to the wrist Status post injury to the left index finger on 06/17/2019 Hypertension Hyperlipidemia GERD Borderline diabetic History of pleuritic chest pain Nicotine addiction DVT prophylaxis. Plan: Patient will be continued on antibiotics in the form of vancomycin and Zosyn. Orthopedic surgery was consulted for possible I&D and to evaluate for tendon injury. Follow-up culture reports. Further recommendations based on the clinical course. Smoking cessation has been counseled extensively. Time with Patient: Greater than 30
--- NOTE | 2019-06-22 | P.CONS ---
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 He relates that he has done this maneuver many times but ended up with his left hand index finger bouncing off of the rotating fan blade. He had an extensive laceration and went to the local emergency room. There was cleansed and sutured closed. Since that time he has now had increasing pain and swelling erythema and difficulty with use of the finger. He started to feel poorly with some fever and constantly presented to our emergency center upon transfer from an outside hospital. Please refer to orthopedic consult as to the details of the transfer. The patient has been accepted by the medicine service and seen by orthopedics. He is being closely evaluated for the need for further surgical intervention. At this time and has significant swelling, poor use of the index finger tenderness when it is manipulated at all. There is swelling onto the hand guineas felt like he's had a fever. He is denying significant chills. He is quite a heavy tobacco smoker relates he does not want nicotine patch at this time. Review of Systems HEENT:Denies headache or acute visual change. Denies sinus or mouth d iscomforts. Denies neck stiffness or pain. Denies significant oral cavity pain. Denies difficulty on swallowing. Lungs: Does not complain of shortness of breath. Has chronic cough without hemoptysis Cardiovascular: Denies significant shortness of breath, chest pain, chest wall pain, orthopnea, dyspnea on exertion, syncope Gastrointestinal:Denies nausea, vomiting, diarrhea, constipation, hematemesis, melena, hematochezia. No no significant change of bowel habit noticed. Musculoskeletal: denies significant myalgias or arthralgias. No new joint swelling. Denies new back pain. Skin: Per the HPI acute injury left hand Neuro: Denies headache or visual change. Denies any new onset weakness or difficulty with ambulation. Denies falls or seizures. Psychiatric:Denies anxiety or depression. Endocrine: Denies significant fatigue, denies significant weight loss or weight gain. Past Medical History Past Medical History: Chest Pain / Angina, GERD/Reflux, Hyperlipidemia, Hypertension, Respiratory Disorder Additional Past Medical History / Comment(s): dx February 2014 pleurisy, acute bronchitis,migraines, states had chest pains from pleurisy, borderline diabetic History of Any Multi-Drug Resistant Organisms: MRSA Year Discovered:: 06/04/17 MDRO Source:: leg Past Surgical History: Appendectomy, Hernia Repair, Orthopedic Surgery Additional Past Surgical History / Comment(s): left ear removed (tumor), robinson knee surgeries Past Anesthesia/Blood Transfusion Reactions: Previous Problems w/ Anesthesia Additional Past Anesthesia/Blood Transfusion Reaction / Comm: takes longer to come out Past Psychological History: No Psychological Hx Reported Additional Psychological History / Comment(s): and lives with the . 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 No experience. No travel. Pet dogs at home. Greater than one pack per day smoker. Denies significant alcohol or recreational drug use Smoking Status: Current every day smoker Past Alcohol Use History: Occasional Past Drug Use History: None Reported - Past Family History Mother Family Medical History: No Reported History Medications and Allergies Home Medications and Allergies Comment(s): Current Medications Hydromorphone HCl (Dilaudid) 1 mg IVP Q4HR PRN PRN Reason: Pain Piperacillin Sod/Tazobactam (Sod 3.375 gm/ Sodium Chloride) 100 mls @ 25 mls/hr IVPB Q8H [facility] Last Admin: 06/21/19 23:06 Dose: 25 mls/hr Documented by: Sodium Chloride (Saline 0.9%) 1,000 mls @ 80 mls/hr IV .[id number] [facility] Last Admin: 06/21/19 23:08 Dose: Not Given Documented by: Daptomycin 500 mg/ Sodium (Chloride) 50 mls @ 100 mls/hr IVPB Q24H [facility]; Protocol Last Admin: 06/21/19 16:42 Dose: 100 mls/hr Documented by: Ketorolac Tromethamine (Toradol) 15 mg IVP Q6HR [facility] Stop: 06/24/19 23:01 Last Admin: 06/21/19 23:05 Dose: 15 mg Documented by: Lisinopril (Zestril) 20 mg PO DAILY [facility] Last Admin: 06/21/19 08:22 Dose: 20 mg Documented by: Multivitamins (Theragran) 1 each PO DAILY [facility] Last Admin: 06/21/19 17:24 Dose: Not Given Documented by: Naloxone HCl (Narcan) 0.2 mg IV Q2M PRN PRN Reason: Opioid Reversal Ondansetron HCl (Zofran) 4 mg IVP Q6HR PRN PRN Reason: Nausea And Vomiting Silver Sulfadiazine (Silvadene Cream) 1 applic TOPICAL DAILY [facility] Last Admin: 06/21/19 16:43 Dose: 1 applic Documented by: Home Medications Medication Instructions Recorded Confirmed Type Cephalexin [Keflex] 500 mg PO QID 06/20/19 06/20/19 History Allergies Allergy/AdvReac Type Severity Reaction Status Date / Time sulfamethoxazole Allergy Rash/Hives Verified 06/20/19 22:28 [From Bactrim] trimethoprim [From Bactrim] Allergy Rash/Hives Verified 06/20/19 22:28 Physical Exam Vitals: Vital Signs Temp Pulse Resp BP Pulse Ox 06/21/19 19:33 97.9 F 66 16 131/75 98 06/21/19 15:00 98.1 F 56 L 15 151/84 97 06/21/19 07:00 98.4 F 52 L 16 112/70 96 Intake and Output 06/21/19 06/21/19 06/22/19 14:59 22:59 06:59 Intake Total 462 1230 Balance 462 1230 Intake: Intake, IV Titration 250 Amount Vancomycin 1,500 mg In 250 Sodium Chloride 0.9% 250 ml @ 125 mls/hr IVPB Q8H [facility] Rx#:[id number] Oral 462 980 Other: Voiding Method Toilet # Voids 2 48 year old male HEENT: Anicteric conjunctiva are pink and moist nasal mucosa grossly intact without significant lesions, there is no thrush. Neck: The neck is supple without significant lymphadenopathy or thyromegaly. Lungs: \Symmetrical air entry is noted there is evidence of wheezing to the lung gtz but no vazquez bronchial sounds all dullness or egophony Heart: Regular rate and rhythm with an audible S1-S2, no S3 no S4. There is no significant murmur click or rub, PMI was nondisplaced. Abdomen: Positive bowel sounds soft and nontender without palpable masses or organomegaly. There was no guarding or rebound. Extremities: The right arm has no acute abnormalities. The left arm has evidence of the injury to the index finger on the lateral surface with the J shaped injury to his sutures in place, every other suture has been removed and culture was obtained. There is only some scant serosanguineous drainage. The finger is very swollen and very tender to any manipulation. Of note he does have Dupuytren's contracture to the left hand fifth finger Neuro: Awake alert oriented to person place and time. There are no acute new gross focal sensory motor deficits. Results CBC & Chem 7: 06/21/19 07:22 06/21/19 07:22 Labs: Abnormal Lab Results - Last 24 Hours (Table) 06/21/19 Range/Units 07:22 Glucose 106 H (74-99) mg/dL Total Protein 6.2 L (6.3-8.2) g/dL Laboratory Results WBC 6.9 k/uL (3.8-10.6) 06/21/19 07:22 RBC 4.59 m/uL (4.30-5.90) 06/21/19 07:22 Hgb 15.8 gm/dL (13.0-17.5) 06/21/19 07:22 Hct 45.8 % (39.0-53.0) 06/21/19 07:22 MCV 99.8 fL (80.0-100.0) 06/21/19 07:22 MCH 34.5 pg (25.0-35.0) 06/21/19 07:22 MCHC 34.6 g/dL (31.0-37.0) 06/21/19 07:22 RDW 12.8 % (11.5-15.5) 06/21/19 07:22 Plt Count 283 k/uL (150-450) 06/21/19 07:22 Neutrophils % 63 % 06/21/19 07:22 Lymphocytes % 26 % 06/21/19 07:22 Monocytes % 5 % 06/21/19 07:22 Eosinophils % 4 % 06/21/19 07:22 Basophils % 1 % 06/21/19 07:22 Neutrophils # 4.3 k/uL (1.3-7.7) 06/21/19 07:22 Lymphocytes # 1.8 k/uL (1.0-4.8) 06/21/19 07:22 Monocytes # 0.3 k/uL (0-1.0) 06/21/19 07:22 Eosinophils # 0.3 k/uL (0-0.7) 06/21/19 07:22 Basophils # 0.1 k/uL (0-0.2) 06/21/19 07:22 Sodium 141 mmol/L (137-145) 06/21/19 07:22 Potassium 4.7 mmol/L (3.5-5.1) 06/21/19 07:22 Chloride 107 mmol/L (98-107) 06/21/19 07:22 Carbon Dioxide 27 mmol/L (22-30) 06/21/19 07:22 Anion Gap 7 mmol/L 06/21/19 07:22 BUN 9 mg/dL (9-20) 06/21/19 07:22 Creatinine 0.95 mg/dL (0.66-1.25) 06/21/19 07:22 Est GFR (CKD-EPI)AfAm >90 (>60 ml/min/1.73 sqM) 06/21/19 07:22 Est GFR (CKD-EPI)NonAf >90 (>60 ml/min/1.73 sqM) 06/21/19 07:22 Glucose 106 mg/dL (74-99) H 06/21/19 07:22 Calcium 8.6 mg/dL (8.4-10.2) 06/21/19 07:22 Total Bilirubin 1.3 mg/dL (0.2-1.3) 06/21/19 07:22 AST 35 U/L (17-59) 06/21/19 07:22 ALT 42 U/L (21-72) 06/21/19 07:22 Alkaline Phosphatase 46 U/L (38-126) 06/21/19 07:22 Total Protein 6.2 g/dL (6.3-8.2) L 06/21/19 07:22 Albumin 3.6 g/dL (3.5-5.0) 06/21/19 07:22 Assessment and Plan (1) Injury of left hand Current Visit: Yes Status: Acute Code(s): S69.92XA - UNSP INJURY OF LEFT WRIST, HAND AND FINGER(S), INIT ENCNTR SNOMED Code(s): 54683985974115038 (2) Cellulitis of finger of left hand Narrative/Plan: 48 -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 He was on oral antibiotic therapy but despite this had the rapidly increasing pain and swelling erythema to the left hand at the index finger. He did present back to the prior hospital and was transferred to our facility as per the orthopedic note. At this time the patient is evidence of swelling erythema and some drainage to the site. He also has evidence of poor motion. Concern at this time would be to tenosynovitis and consequently antibiotic therapy is initiated. With his history of an MRSA infection with an HAYDEE of 2 antibiotic therapy was altered to daptomycin. Zosyn was also started while culture is pending to ensure that there is no gram-negative infection at that site. Significant discussion about smoking cessation occurs and how that impacts this process. He does not want a patch at this point in time we offered if it is needed. Multivitamin is added Tetanus is up-to-date Importance of high-protein diet is related He will have follow-up with orthopedics and hopefully orthopedic hand surgery can come to see him in the near future. If there is any further swelling, MRI to the site will be obtained. Current Visit: Yes Status: Acute Code(s): L03.012 - CELLULITIS OF LEFT FINGER SNOMED Code(s): 95641869 (3) History of MRSA infection Current Visit: Yes Status: Acute Code(s): Z86.14 - PERSONAL HISTORY OF METHICILLIN RESIS STAPH INFECTION SNOMED Code(s): 258778883
[2019-06-22] MEDS: PIPERACILLIN-TAZOBACTAM 3.375 GM in SODIUM CHLORIDE 0.9% 100 ML IVPB SCH ×2 (05:20→13:55)
[2019-06-22] MEDS: KETOROLAC 30 MG/ML 1 ML VIAL IVP SCH ×2 (05:20→11:09)
[2019-06-22] MEDS: MULTIVITAMINS, THERA 1 EACH TAB PO SCH (08:30)
[2019-06-22] MEDS: LISINOPRIL 20 MG TAB PO SCH (08:30)
[2019-06-22] MEDS ORDERED: ENOXAPARIN 40 MG/0.4 ML SYRINGE SQ SCH (10:15)
[2019-06-22] MEDS ORDERED: NICOTINE 21MG/24HR PATCH TRANSDERM SCH (10:15)
[2019-06-22] MEDS ORDERED: VANCOMYCIN TROUGH DUE 1 EACH MISC MISCELLANE ONE (12:00)
[2019-06-22] MEDS: SODIUM CHLORIDE 0.9% 1,000 ML IV SCH (13:54)
[2019-06-22 14:13] VITALS: BP 163/91; PULSE 58; RESP 18; TEMP 98
--- NOTE | 2019-06-22 15:08 | P.PN ---
Subjective Progress Note Date: 06/22/19 This patient is a right-hand dominant 48-year-old male with a past medical history of cigarette use who is admitted to internal medicine with a left index finger infection. The patient sustained an injury to the left index finger this past , when he cut it on a fan blade at work. He was initially evaluated at [facility] ER, where a bedside irrigation and debridement, followed by wound closure. He was discharged home with instructions to follow-up with Dr. Caraballo. The patient developed progressively worsening pain and swelling of the right index finger and hand. He again presented to [facility], and was subsequently transferred to [facility]. Patient was admitted to internal medicine with a consult placed to orthopedic surgery. Patient also reports a history of injury to the small finger, resulting in a fixed flexion contracture. Patient is examined bedside this morning. Patient states he believes the swelling in his hand has decreased overnight. He describes minimal decrease in pain in the left index finger, although he believes he has more motion of the finger today. He denies fevers, chills, generalized malaise, nausea, vomiting. Objective - Vital Signs Vital signs: Vital Signs Temp 98.0 F 06/22/19 13:55 Pulse 58 L 06/22/19 13:55 Resp 18 06/22/19 13:55 BP 163/91 06/22/19 13:55 Pulse Ox 99 06/22/19 13:55 Intake & Output 06/21/19 06/22/19 06/22/19 18:59 06:59 18:59 Intake Total 942 1490 Balance 942 1490 Intake: Intake, IV Titration 990 Amount Piperacillin-Tazobactam 3 100 .375 gm In Sodium Chloride 0.9% 100 ml @ 25 mls/hr IVPB Q8H [facility] Rx#: [id number] Sodium Chloride 0.9% 1, 640 000 ml @ 80 mls/hr IV . [id number] [facility] Rx#:[id number] Vancomycin 1,500 mg In 250 Sodium Chloride 0.9% 250 ml @ 125 mls/hr IVPB Q8H [facility] Rx#:[id number] Oral 942 500 Other: Voiding Method Toilet # Voids 2 3 - Exam On examination, the patient is sitting up in bed in no apparent distress. He is alert and orientated x3. On inspection of the left hand, there is J-shaped laceration over the PIP joint of the index finger. Nylon sutures are in place, every other suture has been removed. Silvadene cream covering the wound. There finger is swollen with mild surrounding erythema. No active drainage from the wound. No areas of fluctuance. The finger is resting in a flexed position. Limited range of motion of the finger secondary to swelling, there is minimal pain with PROM of the finger. All fingers and thumb are warm and well perfused with brisk capillary refill. Sensation is intact to light touch of all fingers and thumb. There is a fixed flexion deformity of the small finger, but the patient reports that this is chronic. - Labs CBC & Chem 7: 06/21/19 07:22 06/21/19 07:22 Assessment and Plan Assessment: Cellulitis following traumatic wound, left index finger Plan: - There is no operative intervention planned at this time. Continue local wound care and IV antibiotics per infectious disease. - Patient will be evaluated by our hand surgeon, Dr. Ellison, later this afternoon, or tomorrow for further recommendations. - We will continue to follow patient closely while he remains inpatient. Patient discussed with Dr. Ellison and Dr. Waterman.
[2019-06-22] MEDS: DAPTOmycin 500 MG in SODIUM CHLORIDE 0.9% 50 ML IVPB SCH (16:45)
--- NOTE | 2019-06-22 17:18 | P.PN ---
Subjective Progress Note Date: 06/22/19 The patient is a pleasant 48-year-old [id number] male who sustained a traumatic laceration to his left middle finger last week when he struck it against a fan of an engine. The following day, he went to an urgent care and was immediately referred to [facility] ER where the wound was sutured. 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 Since admission here, he states that the swelling and pain have both improved substantially. Patient does admit to history of previous MRSA infection of his left thigh treated at this institution in 2017. He's also had a chronic contracture of his left small finger for years which seems to be worsening. He smokes between 1 to 1.5 packs a day. Objective - Vital Signs Vital signs: Vital Signs Temp 98.0 F 06/22/19 13:55 Pulse 58 L 06/22/19 13:55 Resp 18 06/22/19 13:55 BP 163/91 06/22/19 13:55 Pulse Ox 99 06/22/19 13:55 Intake & Output 06/21/19 06/22/19 06/22/19 18:59 06:59 18:59 Intake Total 942 1490 Balance 942 1490 Intake: Intake, IV Titration 990 Amount Piperacillin-Tazobactam 3 100 .375 gm In Sodium Chloride 0.9% 100 ml @ 25 mls/hr IVPB Q8H [facility] Rx#: [id number] Sodium Chloride 0.9% 1, 640 000 ml @ 80 mls/hr IV . [id number] [facility] Rx#:[id number] Vancomycin 1,500 mg In 250 Sodium Chloride 0.9% 250 ml @ 125 mls/hr IVPB Q8H [facility] Rx#:[id number] Oral 942 500 Other: Voiding Method Toilet # Voids 2 3 - Exam There is sutured curvilinear laceration over the dorsal aspect of the left index finger, centered over the PIP joint. There is no maceration of the skin and the wound is well approximated. There is no erythema, drainage or discrete subcutaneous fluctuance. There is minimal tenderness to palpation. Range of motion is somewhat limited due to pain and swelling but he is able to actively extend the DIP, PIP and MCP joints and hold this against resistance, though he is not able to quite achieve full extension actively. Adiel's test was attempted but the patient has difficulty with this, also secondary to pain and swelling. No particular tenderness along the flexor or extensor sheaths. Minimal pain with passive PIP motion. Normal tenodesis of the index finger with passive wrist flexion and extension. There is minimal prominent palpable cord in the palm overlying the fifth metacarpal with a Y-extension toward the ring finger. Prominent flexion deform ity of the small finger. - Labs CBC & Chem 7: 06/21/19 07:22 06/21/19 07:22 Assessment and Plan Assessment: 1. Left index finger laceration. 2. Duputryen's contracture of the left small finger 3. Nicotine addiction Plan: Discussed the clinical findings in detail with Mr. Holley and his . I do not see evidence of an active wound infection, discrete abscess or suppurative extensor or flexor tenosynovitis. Though somewhat limited by pain and swelling, his exam does not suggest a high- grade tendon laceration. I recommended reevaluating this outpatient in approximately a week. I recommended continued local wound care and range of motion as tolerated. I instructed him to move the finger within the limits of comfort but avoid forcing full flexion. I advised him to avoid strenuous use. Continue antibiotics at under the direction of Dr. Flood. Questions were invited and answered to his satisfaction. He expressed understanding and agreement with the proposed plan. Thank you for allowing me to participate in the care of this patient. Alphonse Ellison D.O. Orthopedic hand and upper extremity surgeon [facility]
--- NOTE | 2019-06-22 21:45 | P.PN ---
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 He relates that he has done this maneuver many times but ended up with his left hand index finger bouncing off of the rotating fan blade. He had an extensive laceration and went to the local emergency room. There was cleansed and sutured closed. Since that time he has now had increasing pain and swelling erythema and difficulty with use of the finger. He started to feel poorly with some fever and constantly presented to our emergency center upon transfer from an outside hospital. Please refer to orthopedic consult as to the details of the transfer. The patient has been accepted by the medicine service and seen by orthopedics. He is being closely evaluated for the need for further surgical intervention. At this time and has significant swelling, poor use of the index finger tenderness when it is manipulated at all. There is swelling onto the hand guineas felt like he's had a fever. He is denying significant chills. He is quite a heavy tobacco smoker relates he does not want nicotine patch at this time. 06/22/2019 the patient is feeling considerably better today. He has been seen by the hand surgeon and appears to have had a marked improvement from the localized infection to the finger. The patient relates the pain is improved and is range of motion also improved. Denies fevers or chills. Objective - Vital Signs Vital signs: Vital Signs Temp 98.0 F 06/22/19 13:55 Pulse 58 L 06/22/19 13:55 Resp 18 06/22/19 13:55 BP 163/91 06/22/19 13:55 Pulse Ox 99 06/22/19 13:55 Intake & Output 06/22/19 06/22/19 06/23/19 06:59 18:59 06:59 Intake Total 1490 Balance 1490 Intake: Intake, IV Titration 990 Amount Piperacillin-Tazobactam 3 100 .375 gm In Sodium Chloride 0.9% 100 ml @ 25 mls/hr IVPB Q8H ANN Rx#: [id number] Sodium Chloride 0.9% 1, 640 000 ml @ 80 mls/hr IV . [id number] ANN Rx#:[id number] Vancomycin 1,500 mg In 250 Sodium Chloride 0.9% 250 ml @ 125 mls/hr IVPB Q8H PENDING SALE TO [facility] Rx#:[id number] Oral 500 Other: Voiding Method Toilet # Voids 3 - Exam 48 year old male HEENT: Anicteric conjunctiva are pink and moist nasal mucosa grossly intact without significant lesions, there is no thrush. Neck: The neck is supple without significant lymphadenopathy or thyromegaly. Lungs: \Symmetrical air entry is noted there is evidence of wheezing to the lung gtz but no vazquez bronchial sounds all dullness or egophony Heart: Regular rate and rhythm with an audible S1-S2, no S3 no S4. There is no significant murmur click or rub, PMI was nondisplaced. Abdomen: Positive bowel sounds soft and nontender without palpable masses or organomegaly. There was no guarding or rebound. Extremities: The right arm has no acute abnormalities. The left arm has evidence of the injury to the index finger on the lateral surface with the J s haped injury to his sutures in place, every other suture has been removed and culture was obtained. Today's exam reveals evidence of marked improvement to the hand. The amount of swelling is almost completely resolved, the redness is improved. The drainage of the hand is improved. The range of motion to left index finger is markedly improved somewhat limited by pain but markedly improved. Neuro: Awake alert oriented to person place and time. There are no acute new gross focal sensory motor deficits. - Labs CBC & Chem 7: 06/21/19 07:22 06/21/19 07:22 Labs: Laboratory Results WBC 6.9 k/uL (3.8-10.6) 06/21/19 07:22 RBC 4.59 m/uL (4.30-5.90) 06/21/19 07:22 Hgb 15.8 gm/dL (13.0-17.5) 06/21/19 07:22 Hct 45.8 % (39.0-53.0) 06/21/19 07:22 MCV 99.8 fL (80.0-100.0) 06/21/19 07:22 MCH 34.5 pg (25.0-35.0) 06/21/19 07:22 MCHC 34.6 g/dL (31.0-37.0) 06/21/19 07:22 RDW 12.8 % (11.5-15.5) 06/21/19 07:22 Plt Count 283 k/uL (150-450) 06/21/19 07:22 Neutrophils % 63 % 06/21/19 07:22 Lymphocytes % 26 % 06/21/19 07:22 Monocytes % 5 % 06/21/19 07:22 Eosinophils % 4 % 06/21/19 07:22 Basophils % 1 % 06/21/19 07:22 Neutrophils # 4.3 k/uL (1.3-7.7) 06/21/19 07:22 Lymphocytes # 1.8 k/uL (1.0-4.8) 06/21/19 07:22 Monocytes # 0.3 k/uL (0-1.0) 06/21/19 07:22 Eosinophils # 0.3 k/uL (0-0.7) 06/21/19 07:22 Basophils # 0.1 k/uL (0-0.2) 06/21/19 07:22 Sodium 141 mmol/L (137-145) 06/21/19 07:22 Potassium 4.7 mmol/L (3.5-5.1) 06/21/19 07:22 Chloride 107 mmol/L (98-107) 06/21/19 07:22 Carbon Dioxide 27 mmol/L (22-30) 06/21/19 07:22 Anion Gap 7 mmol/L 06/21/19 07:22 BUN 9 mg/dL (9-20) 06/21/19 07:22 Creatinine 0.95 mg/dL (0.66-1.25) 06/21/19 07:22 Est GFR (CKD-EPI)AfAm >90 (>60 ml/min/1.73 sqM) 06/21/19 07:22 Est GFR (CKD-EPI)NonAf >90 (>60 ml/min/1.73 sqM) 06/21/19 07:22 Glucose 106 mg/dL (74-99) H 06/21/19 07:22 Calcium 8.6 mg/dL (8.4-10.2) 06/21/19 07:22 Total Bilirubin 1.3 mg/dL (0.2-1.3) 06/21/19 07:22 AST 35 U/L (17-59) 08/25/19 07:22 ALT 42 U/L (21-72) 06/21/19 07:22 Alkaline Phosphatase 46 U/L (38-126) 06/21/19 07:22 Total Protein 6.2 g/dL (6.3-8.2) L 06/21/19 07:22 Albumin 3.6 g/dL (3.5-5.0) 06/21/19 07:22 Assessment and Plan (1) Injury of left hand Status: Acute Code(s): S69.92XA - UNSP INJURY OF LEFT WRIST, HAND AND FINGER(S), INIT ENCNTR SNOMED Code(s): 58247887061589182 (2) Cellulitis of finger of left hand Narrative/Plan: 48 -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 He was on oral antibiotic therapy but despite this had the rapidly increasing pain and swelling erythema to the left hand at the index finger. He did present back to the prior hospital and was transferred to our facility as per the orthopedic note. At this time the patient is evidence of swelling erythema and some drainage to the site. He also has evidence of poor motion. Concern at this time would be to tenosynovitis and consequently antibiotic therapy is initiated. With his history of an MRSA infection with an HAYDEE of 2 antibiotic therapy was altered to daptomycin. Zosyn was also started while culture is pending to ensure that there is no gram-negative infection at that site. Significant discussion about smoking cessation occurs and how that impacts this process. He does not want a patch at this point in time we offered if it is needed. Multivitamin is added Tetanus is up-to-date Importance of high-protein diet is related He will have follow-up with orthopedics and hopefully orthopedic hand surgery can come to see him in the near future. If there is any further swelling, MRI to the site will be obtained. 06/22/2019 the patient is now markedly improved. He has a history of MRSA infection is responded well to daptomycin therapy and because the type of infection Zosyn was given also. Cultures are negative at this time. Overall he has markedly improved. He has been seen by the orthopedic hand specialist and there is doubt of any significant tenosynovitis now that the swelling to the finger is improved range of motion is improved. He will discharged home on oral antibiotic therapy with Augmentin and doxycycline which are sent to his pharmacy. He will follow up with a hand surgeon if there is any further concerns he can follow-up in the infectious disease office at that time. Status: Acute Code(s): L03.012 - CELLULITIS OF LEFT FINGER SNOMED Code(s): 79423672 (3) History of MRSA infection Status: Acute Code(s): Z86.14 - PERSONAL HISTORY OF METHICILLIN RESIS STAPH INFECTION SNOMED Code(s): 886963952
== END 2019-06-22 18:32 | disposition home or self-care (01) | DRG 603 ==
LOC: EC 20:21 → 4SSUR 22:16 → OBSVTOIN 06-22 14:09 → UNDODISOB 06-22 18:32
PROVIDERS: ADMIT Hospitalist; ATTEND Hospitalist
DX: L03.012 Cellulitis of left finger (principal); E11.9 Type 2 diabetes mellitus without complications; E78.5 Hyperlipidemia, unspecified; Z71.6 Tobacco abuse counseling; F17.210 Nicotine dependence, cigarettes, uncomplicated; Z86.14 Personal history of Methicillin resistant Staphylococcus aureus infection; I10 Essential (primary) hypertension; K21.9 Gastro-esophageal reflux disease without esophagitis; M72.0 Palmar fascial fibromatosis [Dupuytren]; S61.211A Laceration without foreign body of left index finger without damage to nail, initial encounter; S61.213A Laceration without foreign body of left middle finger without damage to nail, initial encounter; W26.8XXA Contact with other sharp object(s), not elsewhere classified, initial encounter; Y99.0 Civilian activity done for income or pay; G43.909 Migraine, unspecified, not intractable, without status migrainosus; Z88.2 Allergy status to sulfonamides
CPT/HCPCS: 80053; 85025; 96365; 96375; 99284

== ENCOUNTER 2023-08-18 18:59 | Inpatient (IN) | payer BC, OTHER ==
[2023-08-18] MEDS ORDERED: HYDROmorphone 0.5 MG/0.5 ML SYRINGE IVP STA (19:15)
[2023-08-18] MEDS ORDERED: VANCOMYCIN IV PER PHARMACY 1 EACH MISC MISCELLANE PRN (19:16)
[2023-08-18] MEDS ORDERED: NALOXONE 0.4 MG/ML 1 ML VIAL IV PRN (19:16)
--- NOTE | 2023-08-18 19:18 | ED ---
General Adult HPI - General Chief complaint: Recheck/Abnormal Lab/Rx Stated complaint: infection-sent by PCP Time Seen by Provider: 08/18/23 19:00 Source: patient, RN notes reviewed, old records reviewed Mode of arrival: ambulatory Limitations: no limitations - History of Present Illness Initial comments: 53-year-old male with pain and swelling to the palmar aspect of the left hand fourth and fifth digits. Patient is postop approximately 6 weeks from Dupuytrens contracture release. Patient has completed a course of oral antibiotics without improvement. He was sent in by his orthopedic surgeon Dr. Fleming for IV antibiotics and admission. Symptoms have worsened and pain is increased. No measured fever but the patient has had chills. - Related Data Previous Rx's Medication Instructions Recorded Amoxic-Pot Clav 875-125Mg 1 tab PO Q12HR #20 tablet 06/22/19 [Augmentin 875-125] Doxycycline Monohydrate [Monodox] 100 mg PO Q12HR #20 cap 06/22/19 Lisinopril-Hctz 10-12.5 mg 1 tab PO DAILY #30 tab 06/22/19 [Zestoretic 10-12.5] Naproxen [Naprosyn] 250 mg PO TID #10 tab 06/22/19 Nicotine 21Mg/24Hr Patch [Habitrol] 1 patch TRANSDERM DAILY #14 patch 06/22/19 Allergies Allergy/AdvReac Type Severity Reaction Status Date / Time sulfamethoxazole Allergy Rash/Hives Verified 08/18/23 19:06 [From Bactrim] trimethoprim [From Bactrim] Allergy Rash/Hives Verified 08/18/23 19:06 Review of Systems ROS Statement: Those systems with pertinent positive or pertinent negative responses have been documented in the HPI. ROS Other: All systems not noted in ROS Statement are negative. Past Medical History Past Medical History: Chest Pain / Angina, GERD/Reflux, Hyperlipidemia, Hypertension, Respiratory Disorder Additional Past Medical History / Comment(s): dx February 2014 pleurisy, acute bronchitis,migraines, states had chest pains from pleurisy, borderline diabetic History of Any Multi-Drug Resistant Organisms: MRSA Date of last positivie culture/infection: 06/04/17 MDRO Source:: leg Past Surgical History: Appendectomy, Hernia Repair, Orthopedic Surgery Additional Past Surgical History / Comment(s): left ear removed (tumor), robinson knee surgeries Past Anesthesia/Blood Transfusion Reactions: Previous Problems w/ Anesthesia Additional Past Anesthesia/Blood Transfusion Reaction / Comment(s): takes longer to come out Past Psychological History: No Psychological Hx Reported Past Alcohol Use History: Occasional Past Drug Use History: None Reported - Past Family History Mother Family Medical History: No Reported History General Exam Limitations: no limitations General appearance: alert, in no apparent distress Head exam: Present: atraumatic, normocephalic Eye exam: Present: normal appearance, PERRL Respiratory exam: Present: normal lung sounds bilaterally. Absent: respiratory distress, wheezes Cardiovascular Exam: Present: normal rhythm, tachycardia Extremities exam: Present: other (There is erythema and swelling at the base of the fourth and fifth digit left hand on the palmar surface. There is contracture of these digits and severe pain. Cap Refill is intact.) Neurological exam: Present: alert, oriented X3 Psychiatric exam: Present: normal affect, normal mood Course Vital Signs 08/18/23 19:04 Temperature 98.0 F Pulse Rate 101 H Respiratory 18 Rate Blood Pressure 154/94 O2 Sat by Pulse 97 Oximetry Medical Decision Making - Medical Decision Making Was pt. sent in by a medical professional or institution (, PA, POT TENDER, urgent care, hospital, or prison...) When possible be specific @ Sent in by Dr. Fleming Did you speak to anyone other than the patient for history (EMS, parent, family, police, friend...)? What history was obtained from this source @ -No Did you review nursing and triage notes (agree or disagree)? Why? @ -I reviewed and agree with nursing and triage notes Were old charts reviewed (outside hosp., previous admission, EMS record, old EKG, old radiological studies, urgent care reports/EKG's, prison records)? Report findings @ -No old charts were reviewed Differential Diagnosis (chest pain, altered mental status, abdominal pain women, abdominal pain men, vaginal bleeding, weakness, fever, dyspnea, syncope, headache, dizziness, GI bleed, back pain, seizure, CVA, palpatations, mental health, musculoskeletal)? @Cellulitis, flexor tenosynovitis, Palmar abscess EKG interpreted by me (3pts min.). @ -As above X-rays interpreted by me (1pt min.). @ -None done CT interpreted by me (1pt min.). @ -None done U/S interpreted by me (1pt. min.). @ -None done What testing was considered but not performed or refused? (CT, X-rays, U/S, labs)? Why? @ -None What meds were considered but not given or refused? Why? @ -None Did you discuss the management of the patient with other professionals (professionals i.e. DrKrystal, PA, POT TENDER, lab, RT, psych nurse, social service agency director, child and family counselor, teacher, parking enforcement officer, machine adjuster leader case trim)? Give summary @ -No Was smoking cessation discussed for >3mins.? @ -No Was critical care preformed (if so, how long)? @ -No Were there social determinants of health that impacted care today? How? (Homelessness, low income, unemployed, alcoholism, drug addiction, transportation, low edu. Level, literacy, decrease access to med. care, senior care, rehab)? @ -No Was there de-escalation of care discussed even if they declined (Discuss DNR or withdrawal of care, Hospice)? DNR status @ -No What co-morbidities impacted this encounter? (DM, HTN, Smoking, COPD, CAD, Cancer, CVA, ARF, Chemo, Hep., AIDS, mental health diagnosis, sleep apnea, morbid obesity)? @ -[Hypertension Was patient admitted / discharged? Hospital course, mention meds given and route, prescriptions, significant lab abnormalities, going to OR and other pertinent info. @ -[53-year-old male with soft tissue infection of the left hand, concern for f lexor tenosynovitis. Patient started on Zosyn and vancomycin. He will be admitted to Dr. Fleming. He will be kept nothing by mouth for tomorrow, possible surgery. Laboratory studies will be obtained, results pending. Undiagnosed new problem with uncertain prognosis? @ -No Drug Therapy requiring intensive monitoring for toxicity (Heparin, Nitro, Insulin, Cardizem)? @ -No Were any procedures done? @ -No Diagnosis/symptom? @ Flexor tenosynovitis Acute, or Chronic, or Acute on Chronic? @ Acute Uncomplicated (without systemic symptoms) or Complicated (systemic symptoms)? @ -[Complicated Side effects of treatment? @ -No Exacerbation, Progression, or Severe Exacerbation? @ -No Poses a threat to life or bodily function? How? (Chest pain, [place], [place], pneumonia, PE, COPD, DKA, ARF, appy, cholecystitis, CVA, Diverticulitis, Homicidal, Suicidal, threat to staff... and all critical care pts) @ -[Yes, sepsis, Disposition Clinical Impression: Flexor tenosynovitis of finger, Soft tissue infection Disposition: ADMITTED IP TO THIS HOSP Condition: Stable Is patient prescribed a controlled substance at d/c from ED?: No Referrals: None,Stated [Primary Care Provider] - 1-2 days Time of Disposition: 19:22
[2023-08-18] MEDS ORDERED: PIPERACILLIN-TAZOBACTAM 3.375 GM in SODIUM CHLORIDE 0.9% 100 ML IVPB ONE (19:30)
[2023-08-18] MEDS: SODIUM CHLORIDE 0.9% 1,000 ML IV SCH (19:52)
[2023-08-18] MEDS ORDERED: VANCOMYCIN 1,500 MG in SODIUM CHLORIDE 0.9% 500 ML 500 ML IVPB ONE (20:00)
[2023-08-18] MEDS: ONDANSETRON 4 MG/2 ML VIAL IVP PRN (20:01)
[2023-08-18 20:10] LABS: Basophils % (A) 0 %; Eosinophils # (A) 0.3 k/uL (0-0.7); Eosinophils % (A) 3 %; HCT 48.7 % (39.0-53.0); HGB 16.8 gm/dL (13.0-17.5); Lymphocytes # (A) 2.8 k/uL (1.0-4.8); Lymphocytes % (A) 25 %; MCH 34.8 pg (25.0-35.0); MCHC 34.6 g/dL (31.0-37.0); MCV 100.6 fL (80.0-100.0); Mean Platelet Volume 7.1; Monocytes # (A) 0.4 k/uL (0-1.0); Monocytes % (A) 3 %; Neutrophils # (A) 7.1 k/uL (1.3-7.7); Neutrophils % (A) 65 %; Platelet Count 234 k/uL (150-450); RBC 4.84 m/uL (4.30-5.90); RDW 12.2 % (11.5-15.5)
[2023-08-18 20:29] LABS: INR 0.9 (<1.2)
[2023-08-18 20:30] LABS: Partial Thromboplastin Time 23.1 sec (22.0-30.0); Prothrombin Time 10.1 sec (10.0-12.5)
[2023-08-18 20:41] LABS: ALT 76 U/L (4-49); AST 55 U/L (17-59); African American GFR (CKD) >90 (>60 ml/min/1.73 sqM); Albumin 3.9 g/dL (3.5-5.0); Alkaline Phosphatase 61 U/L (38-126); Anion Gap 9 mmol/L; Blood Urea Nitrogen 17 mg/dL (9-20); Calcium 9.2 mg/dL (8.4-10.2); Carbon Dioxide 24 mmol/L (22-30); Chloride 98 mmol/L (98-107); Glucose 120 mg/dL (74-99); Non-African American GFR(CKD) >90 (>60 ml/min/1.73 sqM); Potassium 4.1 mmol/L (3.5-5.1); Sodium 131 mmol/L (137-145); Total Bilirubin 0.5 mg/dL (0.2-1.3); Total Protein 6.9 g/dL (6.3-8.2)
[2023-08-18] MEDS: HYDROmorphone 1 MG/ML 1 ML SYRINGE IVP PRN (23:54)
[2023-08-19] MEDS: PIPERACILLIN-TAZOBACTAM 3.375 GM in SODIUM CHLORIDE 0.9% 100 ML IVPB SCH ×2 (01:33→09:51)
[2023-08-19] MEDS: VANCOMYCIN 1,500 MG in SODIUM CHLORIDE 0.9% 500 ML 500 ML IVPB SCH ×3 (04:42→23:38)
[2023-08-19] MEDS: SODIUM CHLORIDE 0.9% 1,000 ML IV SCH ×2 (04:43→17:34)
[2023-08-19] MEDS: HYDROmorphone 1 MG/ML 1 ML SYRINGE IVP PRN ×2 (04:49→10:25)
[2023-08-19 06:48] LABS: African American GFR (CKD) >90 (>60 ml/min/1.73 sqM); Non-African American GFR(CKD) >90 (>60 ml/min/1.73 sqM)
[2023-08-19] MEDS ORDERED: LISINOPRIL-HCTZ 10-12.5 MG 1 EACH TAB PO SCH (09:00)
[2023-08-19] MEDS: amLODIPine 2.5 MG TAB PO SCH (09:51)
[2023-08-19] MEDS: LISINOPRIL-HCTZ 20-12.5 MG 1 EACH TAB PO SCH (09:51)
[2023-08-19] MEDS: ONDANSETRON 4 MG/2 ML VIAL IVP PRN (10:33)
--- NOTE | 2023-08-19 10:46 | P.HPOR ---
History of Present Illness H&P Date: 08/19/23 Chief Complaint: Infection left hand. Ignacio is a 53-year-old male who presents to the emergency department last evening with increased swelling and pain to the palmar aspect of his left hand. He is proximally 6 weeks status post Dupuytren's contracture release of the left fourth and fifth fingers. He recently was seen in our office with possible superficial infection to the area of the incision. He was placed on oral antibiotics at that time. He states that his symptoms have recently returned and have gotten progressively worse. He reports no fever or chills. He is currently afebrile. He is admitted to our service for surgical intervention today. Past Medical History Past Medical History: Chest Pain / Angina, GERD/Reflux, Hyperlipidemia, Hypertension, Respiratory Disorder Additional Past Medical History / Comment(s): dx February 2014 pleurisy, acute bronchitis,migraines, states had chest pains from pleurisy, borderline diabetic History of Any Multi-Drug Resistant Organisms: MRSA Date of last positivie culture/infection: 06/04/17 MDRO Source:: leg Past Surgical History: Appendectomy, Hernia Repair, Orthopedic Surgery Additional Past Surgical History / Comment(s): left ear removed (tumor), robinson knee surgeries Past Anesthesia/Blood Transfusion Reactions: Previous Problems w/ Anesthesia Additional Past Anesthesia/Blood Transfusion Reaction / Comment(s): takes longer to come out Past Psychological History: No Psychological Hx Reported Additional Psychological History / Comment(s): 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 No experience. No travel. Greater than one pack per day smoker. Denies significant alcohol or recreational drug use Smoking Status: Current every day smoker Past Alcohol Use History: Occasional Past Drug Use History: None Reported - Past Family History Mother Family Medical History: No Reported History Medications and Allergies Home Medications Medication Instructions Recorded Confirmed Type Lisinopril-Hctz 20-12.5 mg 1 tab PO DAILY 08/18/23 08/18/23 History [Zestoretic 20-12.5] amLODIPine [Norvasc] 2.5 mg PO DAILY 08/18/23 08/18/23 History Allergies Allergy/AdvReac Type Severity Reaction Status Date / Time sulfamethoxazole Allergy Rash/Hives/ Verified 08/18/23 21:25 [From Bactrim] Nausea trimethoprim [From Bactrim] Allergy Rash/Hives/ Verified 08/18/23 21:25 Nausea Physical Examination This is a 53-year-old gentleman in no acute distress. His significant other is present at bedside. Exam of the left upper extremity reveals slight contracture to the fourth and fifth fingers. Incision on the palmar aspect is well-healed. There is minimal erythema. There is some soft tissue swelling. Limited motion to the fingers. Neurovascular status to the upper extremity is intact. Remainder of his musculoskeletal exam is unremarkable. Results - Labs Labs: Abnormal Lab Results - Last 24 Hours (Table) 08/18/23 08/18/23 Range/Units 19:25 19:25 WBC 11.0 H (3.8-10.6) k/uL MCV 100.6 H (80.0-100.0) fL Sodium 131 L (137-145) mmol/L Glucose 120 H (74-99) mg/dL ALT 76 H (4-49) U/L H & H 08/18/23 Range/Units 19:25 Hgb 16.8 (13.0-17.5) gm/dL Hct 48.7 (39.0-53.0) % Coagulation 08/18/23 Range/Units 19:25 INR 0.9 (<1.2) Result Diagrams: 08/18/23 19:25 08/19/23 06:11 Assessment and Plan (1) Flexor tenosynovitis of finger Current Visit: Yes Status: Acute Code(s): M65.9 - SYNOVITIS AND TENOSYNOVITIS, UNSPECIFIED SNOMED Code(s): 657901522 (2) Soft tissue infection Current Visit: Yes Status: Acute Code(s): L08.9 - LOCAL INFECTION OF THE SKIN AND SUBCUTANEOUS TISSUE, UNSP SNOMED Code(s): 52495563 Plan: The clinical findings are discussed with the patient. He will be taken to surgery today for I&D of the left hand. The procedures been discussed in det ail. He will continue on IV antibiotics. We will take deep cultures of the time of surgery today.
[2023-08-19] MEDS ORDERED: IV FLUID CONTINUATION 400 ML IV ONE (13:00)
[2023-08-19] MEDS ORDERED: IV FLUID CONTINUATION 1,000 ML IV ONE (13:01)
[2023-08-19] MEDS ORDERED: DEXAMETHASONE SOD PHOSPHATE 4 MG/ML 1 ML VIAL IVP ONE (13:02)
[2023-08-19] MEDS ORDERED: MIDAZOLAM 2 MG/2 ML VIAL ONE (13:03)
[2023-08-19] MEDS ORDERED: KETOROLAC 15 MG/ML 1 ML VIAL ONE (13:03)
[2023-08-19] MEDS ORDERED: PROPOFOL 10 MG/ML 20 ML VIAL IV ONE (13:03)
[2023-08-19] MEDS ORDERED: PHENYLEPHRINE-0.9% NACL SYG 1,000 MCG/10 ML SYRINGE ONE (13:03)
[2023-08-19] MEDS ORDERED: fentaNYL (PF) 50 MCG/ML 2 ML AMP ONE (13:03)
[2023-08-19] MEDS ORDERED: LIDOCAINE 1% INJ 10MG/ML (20 ML MDV) ONE (13:03)
[2023-08-19] MEDS ORDERED: SUCCINYLCHOLINE CHLORIDE 200 MG/10 ML VIAL IV ONE (13:03)
[2023-08-19] MEDS ORDERED: LIDOCAINE 1%-EPI 1:100,000 50 ML VIAL SQ ONE (13:29)
[2023-08-19] MEDS ORDERED: BUPIVACAINE (PF) 0.25% 30 ML VIAL SQ ONE (13:29)
[2023-08-19] MEDS ORDERED: HYDROcodone/APAP 5-325MG 1 EACH TAB PO PRN (13:37)
[2023-08-19] MEDS ORDERED: LACTATED RINGERS 1,000 ML IV ONE (14:00)
[2023-08-19] MEDS ORDERED: NEOMYCIN-BACITRACIN-POLY OINT 14 GM TUBE TOPICAL ONE (14:30)
--- NOTE | 2023-08-19 17:37 | P.OP ---
Date of Procedure: 08/19/23 Preoperative Diagnosis: Left ring finger purulent flexor tenosynovitis Postoperative Diagnosis: Left ring and small finger purulent flexor tenosynovitis Procedure(s) Performed: Left hand I&D Anesthesia: FRANSISCO, local Surgeon: Melissa Fleming Estimated Blood Loss (ml): 10 Condition: stable Disposition: PACU Indications for Procedure: Ignacio is 53 yo patient of mine who underwent a left RF/SF dupuytrens excision on 07/02/23. He had an uneventful recovery until about a week ago when he noticed swelling and tenderness to the base of the ring finger. It was unclear wether it was an infectious etiology or a dupuytren flare. We started oral ABX and steroids. He initially had a good response but last night, the swelling and pain increased. The pain is now along the flexor surface of the entire ring finger and to a lesser degree, the small finger. We have decided to proceed with I&D. Description of Procedure: The patient, operative extremity, and procedure were identified in the preop holding area. After informed consent was obtained, he was brought back to the OR. The arm was prepped and draped with a tourniquet along the patient's brachium. A formal time out was performed and the tourniquet was inflated. Attention was first turned to the ring finger. The previous incision was utilized to access the A1 tracie. There was copious amounts of scar tissue and friable tissue overlying the tracie. The tracie was released and there was murky fluid found around the tendons. An oblique incision was made in the pulp of the finger to access the distal end of the flexor tendon sheath. A 16gauge angiocath was inserted into the distal end of the sheath and copious amounts of normal saline was flushed through the tendon sheath. The fluid was observed draining all the way into the wound in the palm. The tendon sheath was flushed until there was no longer any murkiness to the fluid. The finger was taken through full range of motion and there was no murky fluid expressed. The incision was extended proximally. All infectious looking tissue around the A1 tracie and flexor tendons was removed. Pressure to the heel of the palm was applied and there was no murkiness expressed with the milking of the proximal palm. The identical procedure was performed on the small finger. The A1 tracie and the distal end of the flexor tendon sheath was accessed and a 18gauge angiocath was used to flush the tendon sheath. Wounds were closed with 4-0 nylon suture. Wound was dressed with antibiotic ointment, adaptic, gauze, cast padding, and the hand was splinted in intrinsic plus position.
[2023-08-19] MEDS ORDERED: VANCOMYCIN TROUGH DUE 1 EACH MISC MISCELLANE ONE (19:00)
[2023-08-19] MEDS: HYDROmorphone 0.5 MG/0.5 ML SYRINGE IVP PRN ×2 (19:45→23:43)
--- NOTE | 2023-08-19 22:41 | P.CONS ---
History of Present Illness - Reason for Consult Consult date: 08/19/23 - History of Present Illness Patient is a 53-year-old male who recently did have a Dupuytren contracture release of the left fourth and fifth finger that was done approximately 6 weeks ago patient mention about 2 weeks ago he noticed to have increasing swelling and redness and pain to the ED for the patient has been evaluated by her surgeon and the patient has been treated with the Bactrim DS however patient did not have improvement patient apparently has been eval by surgery and was advised to go to the hospital because of increasing pain swelling and redness patient describing his pain to be throbbing intensity is almost 10 out of 10 without any radiation with associated swelling redness no foul-smelling drainage patient denies having any fever did have some chills on presentation to the hospital the patient was afebrile and no fever has been recorded subsequently patient did have white count of 11,000 kidney function has been normal ALT was mildly elevated patient was evaluated by orthopedic surgery patient was taken to the OR this afternoon with the patient was noticed to have left ring and small finger purulent flexor tenosynovitis status post I&D and culture patient was started on vancomycin and Zosyn infectious disease was consulted for further management of antibiotic therapy Past Medical History Past Medical History: Chest Pain / Angina, GERD/Reflux, Hyperlipidemia, Hypertension, Respiratory Disorder Additional Past Medical History / Comment(s): dx February 2014 pleurisy, acute bronchitis,migraines, states had chest pains from pleurisy, borderline diabetic History of Any Multi-Drug Resistant Organisms: MRSA Year Discovered:: 06/04/17 MDRO Source:: leg Past Surgical History: Appendectomy, Hernia Repair, Orthopedic Surgery Additional Past Surgical History / Comment(s): left ear removed (tumor), robinson knee surgeries Past Anesthesia/Blood Transfusion Reactions: Previous Problems w/ Anesthesia Additional Past Anesthesia/Blood Transfusion Reaction / Comm: takes longer to come out Past Psychological History: No Psychological Hx Reported Additional Psychological History / Comment(s): 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 No experience. No travel. Greater than one pack per day smoker. Denies sig nificant alcohol or recreational drug use Smoking Status: Current every day smoker Past Alcohol Use History: Occasional Past Drug Use History: None Reported - Past Family History Mother Family Medical History: No Reported History Medications and Allergies Home Medications Medication Instructions Recorded Confirmed Type Lisinopril-Hctz 20-12.5 mg 1 tab PO DAILY 08/18/23 08/18/23 History [Zestoretic 20-12.5] amLODIPine [Norvasc] 2.5 mg PO DAILY 08/18/23 08/18/23 History Allergies Allergy/AdvReac Type Severity Reaction Status Date / Time sulfamethoxazole Allergy Rash/Hives/ Verified 08/18/23 21:25 [From Bactrim] Nausea trimethoprim [From Bactrim] Allergy Rash/Hives/ Verified 08/18/23 21:25 Nausea Physical Exam Vitals: Vital Signs Temp Pulse Pulse Resp BP BP Pulse Ox 08/19/23 15:15 58 L 16 134/85 97 08/19/23 15:00 60 16 140/79 98 08/19/23 14:50 62 14 135/72 100 08/19/23 14:43 97.0 F L 69 12 151/80 92 L 08/19/23 13:03 97.0 F L 74 16 154/89 94 L 08/19/23 07:00 97.3 F L 59 L 14 117/76 94 L 08/19/23 02:11 98.2 F 68 20 109/71 98 08/18/23 21:00 98.0 F 80 18 148/80 08/18/23 19:04 98.0 F 101 H 18 154/94 97 Intake and Output 08/19/23 08/19/23 08/19/23 06:59 14:59 22:59 Intake Total 800 Output Total 5 Balance 795 Intake: IV 700 Intake, IV Titration 100 Amount Piperacillin-Tazobactam 3 100 .375 gm In Sodium Chloride 0.9% 100 ml @ 200 mls/hr IVPB ONCE ONE Rx#:[id number] Output: Estimated Blood Loss 5 Other: # Voids 2 Results CBC & Chem 7: 08/18/23 19:25 08/19/23 06:11 Labs: Abnormal Lab Results - Last 24 Hours (Table) 08/18/23 08/18/23 Range/Units 19:25 19:25 WBC 11.0 H (3.8-10.6) k/uL MCV 100.6 H (80.0-100.0) fL Sodium 131 L (137-145) mmol/L Glucose 120 H (74-99) mg/dL ALT 76 H (4-49) U/L Assessment and Plan Plan: 1patient presented to hospital with a left hand pain swelling redness failing outpatient Bactrim DS therapy in this patient with evidence of purulent flexor tenosynovitis of the left ring and small finger status post I&D and deep culture we will need to cover for the gram-positive as well as gram-negative pathogen while waiting for the culture to finalize, patient failing outpatient Bactrim DS therapy 2-vancomycin pharmacy to dose with a target trough of 15 while watching kidney function and Vanco trough closely. To continue however discontinue Zosyn to decrease risk of nephrotoxicity and add cefepime 2 g every 8 while waiting for the culture to finalize 3depending upon clinical response as well as culture patient may need IV antibiotic on discharge Multiple questions concern answered We will follow on clinical condition and cultures to further adjust medication if needed Thank you for this consultation we will follow the patient along with you Dictation was produced using [employer] dictation software. please excuse any grammatical, word or spelling errors. Time with Patient: Greater than 30
[2023-08-19] MEDS: CEFEPIME 2 GM in SODIUM CHLORIDE 0.9% 100 ML IVPB SCH (23:38)
[2023-08-20] MEDS: SODIUM CHLORIDE 0.9% 1,000 ML IV SCH ×3 (01:11→21:12)
[2023-08-20] MEDS: HYDROmorphone 0.5 MG/0.5 ML SYRINGE IVP PRN (03:35)
[2023-08-20 06:35] LABS: African American GFR (CKD) >90 (>60 ml/min/1.73 sqM); Non-African American GFR(CKD) >90 (>60 ml/min/1.73 sqM)
[2023-08-20] MEDS: HYDROcodone/APAP 5-325MG 1 EACH TAB PO PRN ×2 (08:36→21:16)
[2023-08-20] MEDS: VANCOMYCIN 1,500 MG in SODIUM CHLORIDE 0.9% 500 ML 500 ML IVPB SCH ×2 (08:36→16:13)
[2023-08-20] MEDS: ONDANSETRON 4 MG/2 ML VIAL IVP PRN (08:37)
[2023-08-20] MEDS: amLODIPine 2.5 MG TAB PO SCH (09:37)
[2023-08-20] MEDS: LISINOPRIL-HCTZ 20-12.5 MG 1 EACH TAB PO SCH (09:37)
[2023-08-20] MEDS: CEFEPIME 2 GM in SODIUM CHLORIDE 0.9% 100 ML IVPB SCH ×4 (09:37→23:21)
--- NOTE | 2023-08-20 11:55 | P.PN ---
Subjective Progress Note Date: 08/20/23 Principal diagnosis: Left hand infected tenosynovitis The patient is a 53 y/o male post I&D of the left ring and little fingers. This is post op #1. He states he is experiencing normal cut skin pain in the hand but the pressure in the hand is better since surgery. He is currently on Vancomycin and cefepime and Dr. Howe has evaluated the patient. No new complaints today. Objective - Vital Signs Vital signs: Vital Signs Temp 98.1 F 08/20/23 07:00 Pulse 72 08/20/23 07:00 Resp 16 08/20/23 07:00 BP 133/84 08/20/23 07:00 Pulse Ox 95 08/20/23 07:00 FiO2 Intake & Output 08/19/23 08/20/23 08/20/23 18:59 06:59 18:59 Intake Total 800 350 118 Output Total 5 0 Balance 795 350 118 Intake: IV 700 Intake, IV Titration 100 Amount Piperacillin-Tazobactam 3 100 .375 gm In Sodium Chloride 0.9% 100 ml @ 200 mls/hr IVPB ONCE ONE Rx#:[id number] Oral 350 118 Output: Emesis 0 Estimated Blood Loss 5 - Exam The splint and dressing was removed today. Sutures in place. The wound looks fine. No active drainage present. He is able to move the fingers slightly. New dressing applied. Neurological and circulatory status is intact. - Labs CBC & Chem 7: 08/18/23 19:25 08/20/23 05:34 Labs: Abnormal Lab Results - Last 24 Hours (Table) 08/20/23 Range/Units 05:34 Creatinine 0.63 L (0.66-1.25) mg/dL Microbiology - Last 24 Hours (Table) 08/18/23 19:40 Blood Culture - Preliminary Blood 08/18/23 19:25 Blood Culture - Preliminary Blood Assessment and Plan (1) Flexor tenosynovitis of finger Current Visit: Yes Status: Acute Code(s): M65.9 - SYNOVITIS AND TENOSYNOVITIS, UNSPECIFIED SNOMED Code(s): 380332939 (2) Soft tissue infection Current Visit: Yes Status: Acute Code(s): L08.9 - LOCAL INFECTION OF THE SKIN AND SUBCUTANEOUS TISSUE, UNSP SNOMED Code(s): 87898557 Plan: The clinical and operative findings were discussed with the patient. The case was discussed at length with Dr. Fleming. He will continue IV antibiotics per ID. We will await final cultures for antibiotic recommendations. He may need an PICC line for terminal superintendent antibiotics. We will continue to follow the patient closely.
--- NOTE | 2023-08-20 13:24 | P.PN ---
Subjective Progress Note Date: 08/20/23 Principal diagnosis: Left hand flexor septic tenosynovitis Patient is a 53-year-old male who recently did have a Dupuytren contracture release of the left fourth and fifth finger that was done approximately 6 weeks ago before presentation to the hospital complaining of left hand pain swelling redness, the patient is status post I&D and evidence of left fourth and fifth finger purulent tenosynovitis. On today's evaluation that is 08/20/2023, the patient remains to be afebrile, the patient is breathing comfortably on room air without the need for supplemental oxygen and denies any shortness of breath, the patient denies having any chest pain or cough, patient denies nausea/vomiting /diarrhea and no abdominal pain, pain to the left hand is currently controlled Patient did have creatinine 0.63 cultures are pending Objective - Vital Signs Vital signs: Vital Signs Temp 98.1 F 08/20/23 07:00 Pulse 72 08/20/23 07:00 Resp 16 08/20/23 07:00 BP 133/84 08/20/23 07:00 Pulse Ox 95 08/20/23 07:00 FiO2 Intake & Output 08/19/23 08/20/23 08/20/23 18:59 06:59 18:59 Intake Total 800 350 118 Output Total 5 0 Balance 795 350 118 Intake: IV 700 Intake, IV Titration 100 Amount Piperacillin-Tazobactam 3 100 .375 gm In Sodium Chloride 0.9% 100 ml @ 200 mls/hr IVPB ONCE ONE Rx#:[id number] Oral 350 118 Output: Emesis 0 Estimated Blood Loss 5 - Exam GENERAL DESCRIPTION: A middle-aged male lying in bed in no distress RESPIRATORY SYSTEM: Unlabored breathing , clear to auscultation anteriorly HEART: S1 S2 regular rate and rhythm , ABDOMEN: Soft , no tenderness EXTREMITIES: Left hand is currently dressed no drainage on dressing - Labs CBC & Chem 7: 08/18/23 19:25 08/20/23 05:34 Labs: Abnormal Lab Results - Last 24 Hours (Table) 08/20/23 Range/Units 05:34 Creatinine 0.63 L (0.66-1.25) mg/dL Microbiology - Last 24 Hours (Table) 08/18/23 19:40 Blood Culture - Preliminary Blood 08/18/23 19:25 Blood Culture - Preliminary Blood Assessment and Plan (1) Flexor tenosynovitis of finger Current Visit: Yes Status: Acute Code(s): M65.9 - SYNOVITIS AND TENOSYNOVITIS, UNSPECIFIED SNOMED Code(s): 442509050 (2) Soft tissue infection Current Visit: Yes Status: Acute Code(s): L08.9 - LOCAL INFECTION OF THE SKIN AND SUBCUTANEOUS TISSUE, UNSP SNOMED Code(s): 27006842 Plan: 1patient presented to hospital with a left hand pain swelling redness failing outpatient Bactrim DS therapy in this patient with evidence of purulent flexor tenosynovitis of the left ring and small finger status post I&D and deep culture we will need to cover for the gram-positive as well as gram-negative pathogen while waiting for the culture to finalize, patient failing outpatient Bactrim DS therapy 2-patient to continue with vancomycin pharmacy to dose with a target trough of 15 while watching kidney function and Vanco trough closely and cefepime 2 g every 8 while waiting for the culture to finalize Multiple questions concern answered Dictation was produced using [employer] dictation software. please excuse any grammatical, word or spelling errors. Time with Patient: Less than 30
--- NOTE | 2023-08-20 14:20 | CDI ---
Documentation Clarification Form Date: 08/20/2023 02:00:47 PM From: Sera Dennis RN CCDS Phone: [phone] Admit Date: 08/18/2023 07:16:00 PM Patient Name: Ignacio Garvin Visit Number: [id number] Discharge Date: ATTENTION: The Clinical Documentation Specialists (CDI) and [facility] Coding Staff appreciate your assistance in clarifying documentation. Please respond to the clarification below the line at the bottom and electronically sign. The CDI & [facility] Coding staff will review the response and follow-up if needed. Please note: Queries are made part of the Legal Health Record. If you have any questions, please contact the author of this message via ITS. Dr. Melissa Post I & D is documented 08/19, procedure note, Additional clarification regarding the procedure is requested. History/Risk Factors: 53- year-old M presents to the ED with increased swelling and pain to palmar aspect of his left fourth and fifth fingers. Recently seen with possible superficial infection to the area of incision. Patient was placed on oral antibiotics the patient is status post Dupuytrens contracture release of the left fourth and fifth fingers on 07/02/2023. . Medical History: Chest pain, Angina, GERD and HTN. 08/19, H&P. Clinical Indicators: The incision was extended proximally. All infectious looking tissue around the A1 tracie and flexor tendons was removed. Treatment: I & D of the right ring finger Please clarify the type of procedure performed: [ X ] Excisional debridement (the removal of necrotic, devitalized tissue or slough by means of cutting away of tissue) [ ] Non-excisional debridement (the removal of necrotic, devitalized tissue or slough by means of flushing, brushing, or washing. (Irrigation) [ ] Other; please specify [ ] Unable to determine [ X ] Instrument(s) used (e.g., scalpel, curette, etc.) ronguer [ ] Other; please specify [ ] Unable to determine [ X ]Appearance and size of the wound (e.g., down to fresh bleeding tissue, 7cm x 10cm, etc.)__Down to the level of the tendon. [ ] Other; please specify [ ] Unable to determine Five elements required for accurate and compliant documentation of a debridement: Technique used (e.g., excisional, excised, cutting, brushing, jet lavage etc.) Instrument(s) used (e.g., scalpel, curette, etc.) Nature of the tissue removed (e.g., necrotic, devitalized tissues, non-viable tissue, etc.) Appearance and size of the wound (e.g., down to fresh bleeding tissue, 7cm x 10cm, etc.) Depth of the debridement* (e.g., skin, subcutaneous tissue, fascia, muscle, bone, etc.) (Template Last Revised: December 2020) MTDD
[2023-08-20] MEDS ORDERED: VANCOMYCIN TROUGH DUE 1 EACH MISC MISCELLANE ONE (15:00)
[2023-08-21] MEDS: VANCOMYCIN 1,250 MG in SODIUM CHLORIDE 0.9% 250 ML IVPB SCH ×2 (03:33→14:08)
[2023-08-21 07:18] LABS: African American GFR (CKD) >90 (>60 ml/min/1.73 sqM); Non-African American GFR(CKD) >90 (>60 ml/min/1.73 sqM)
[2023-08-21] MEDS: LISINOPRIL-HCTZ 20-12.5 MG 1 EACH TAB PO SCH ×2 (08:22→08:23)
[2023-08-21] MEDS: amLODIPine 2.5 MG TAB PO SCH (08:23)
[2023-08-21] MEDS: CEFEPIME 2 GM in SODIUM CHLORIDE 0.9% 100 ML IVPB SCH ×2 (08:23→18:05)
[2023-08-21] MEDS: SODIUM CHLORIDE 0.9% 1,000 ML IV SCH ×2 (08:24→18:06)
--- NOTE | 2023-08-21 12:27 | P.PN ---
Subjective Progress Note Date: 08/21/23 Principal diagnosis: Left hand infected tenosynovitis The patient is a 53 y/o male post I&D of the left ring and little fingers. This is post op #2. He states he is experiencing normal cut skin pain in the hand but the pressure in the hand is better since surgery. He is currently on Vancomycin and cefepime and Dr. Howe has evaluated the patient. Cultures are still pending. No new complaints today. Objective - Vital Signs Vital signs: Vital Signs Temp 97.9 F 08/21/23 07:15 Pulse 65 08/21/23 10:10 Resp 16 08/21/23 07:15 BP 151/94 08/21/23 10:10 Pulse Ox 93 L 08/21/23 10:10 FiO2 Intake & Output 08/20/23 08/21/23 08/21/23 18:59 06:59 18:59 Intake Total 236 118 Balance 236 118 Intake: Oral 236 118 Other: # Voids 6 2 - Exam The splint and dressing was removed today. Sutures in place. The wound looks fine. No active drainage present. He is able to move the fingers slightly. Neurological and circulatory status is intact. - Labs CBC & Chem 7: 08/18/23 19:25 08/21/23 06:39 Labs: Microbiology - Last 24 Hours (Table) 08/18/23 19:40 Blood Culture - Preliminary Blood 08/18/23 19:25 Blood Culture - Preliminary Blood 08/19/23 14:17 Gram Stain - Preliminary Finger - Left Fourth Assessment and Plan (1) Flexor tenosynovitis of finger Current Visit: Yes Status: Acute Code(s): M65.9 - SYNOVITIS AND TENOSY NOVITIS, UNSPECIFIED SNOMED Code(s): 533874822 (2) Soft tissue infection Current Visit: Yes Status: Acute Code(s): L08.9 - LOCAL INFECTION OF THE SKIN AND SUBCUTANEOUS TISSUE, UNSP SNOMED Code(s): 52260332 Plan: The clinical and operative findings were discussed with the patient. The case was discussed at length with Dr. Fleming. He will continue IV antibiotics per ID. We will await final cultures for antibiotic recommendations. He may need an PICC line for fpc antibiotics. He may shower today with hand uncovered and nursing to redress hand. We will continue to follow the patient closely.
[2023-08-21] MEDS: HYDROcodone/APAP 5-325MG 1 EACH TAB PO PRN ×2 (14:39→22:24)
[2023-08-22] MEDS: CEFEPIME 2 GM in SODIUM CHLORIDE 0.9% 100 ML IVPB SCH ×2 (00:39→09:34)
[2023-08-22] MEDS: VANCOMYCIN 1,250 MG in SODIUM CHLORIDE 0.9% 250 ML IVPB SCH ×2 (03:03→09:40)
[2023-08-22 04:47] VITALS: RESP 15; TEMP 97.8
[2023-08-22] MEDS: SODIUM CHLORIDE 0.9% 1,000 ML IV SCH ×2 (04:49→15:21)
[2023-08-22 08:27] VITALS: BP 173/90; PULSE 63
[2023-08-22] MEDS ORDERED: LIDOCAINE 1% INJ 10MG/ML (5 ML VIAL-PF) SQ ONE (08:49)
[2023-08-22] MEDS ORDERED: ONDANSETRON 4 MG/2 ML VIAL IVP ONE (08:59)
[2023-08-22] MEDS ORDERED: VANCOMYCIN TROUGH DUE 1 EACH MISC MISCELLANE ONE (09:00)
--- NOTE | 2023-08-22 09:04 | P.OP ---
Date of Procedure: 08/22/23 Description of Procedure: Preoperative Diagnosis: Need for long-term IV antibiotic access. Postoperative Diagnosis: Same. Procedure(s) Performed: Ultrasound-guided cannulation left brachial vein. Insertion of peripherally inserted central catheter under fluoroscopic guidance. Anesthesia: local 1% lidocaine plain Surgeon: Andrea Estimated Blood Loss (ml): 5 IV fluids (ml): 0 Urine output (ml): 0 Pathology: none sent Condition: stable Disposition: no change Indications for Procedure: Patient requires long-term IV antibiotics as an outpatient patient is offered a PICC line to allow for intravenous administration of antibiotics. Description of Procedure: Patient was brought to the special procedure suite. The left upper extremity sterilely prepped and draped in usual manner. Initially the basilic vein was identified, is found to be too small to access. Ultrasound was utilized to identify the brachial vein which was normally compressible free of visible thrombus. Permenant image was stored. 1% Xylocaine was utilized for local anesthesia tissues overlying the vein. Through this anesthetized area and with the aid of ultrasound a micropuncture needle was utilized to cannulate the vein. Once cannulated, Softip guidewire was advanced into the vein. The needle was withdrawn and a micropuncture sheath and dilator advanced over the guidewire. The guidewire was withdrawn and exchanged for the PICC guidewire and measured 48 cm to the cavoatrial junction. The catheter was cut to size and advanced into the cavoatrial junction without resistance. The sheath was peeled away. Blood was easily withdrawn through the catheter and the catheter was then flushed with heparinized saline solution and secured to the skin. Patient tolerated procedure well and was returned to their room in satisfactory and stable condition.
--- NOTE | 2023-08-22 09:17 | IR ---
EXAMINATION TYPE: IR cvc insert >=5 years DATE OF EXAM: 08/22/2023 COMPARISON: None HISTORY: ANTIBIOTICS, 0.1MIN FLUORO, 48CM LEFT BRACHIAL, 0.3 mGy Fluoroscopy was provided to the referring clinician.
[2023-08-22] MEDS: amLODIPine 2.5 MG TAB PO SCH (09:34)
[2023-08-22] MEDS: HYDROcodone/APAP 5-325MG 1 EACH TAB PO PRN (09:43)
[2023-08-22] MEDS ORDERED: LISINOPRIL-HCTZ 20-12.5 MG 1 EACH TAB PO SCH (10:00)
--- NOTE | 2023-08-22 12:37 | P.DS ---
Providers Date of admission: 08/18/23 19:16 Expected date of discharge: 08/22/23 Attending physician: Melissa Fleming DO Consults: 08/19/23 13:01 Consult Physician Routine Consulting Provider: Val Howe Consult Reason/Comments: flexor tenosynovitis s/p Dupuytren's excision Do you want consulting provider notified?: Yes Primary care physician: Stated None - Discharge Diagnosis(es) (1) Flexor tenosynovitis of finger Current Visit: Yes Status: Acute (2) Soft tissue infection Current Visit: Yes Status: Acute Hospital Course: The patient is a 53 y/o male who is well known to our office who presented to the emergency department on 08/18/2023 with increasing pain and swelling in the left hand. He is status post left ring and left small finger Dupuytren's excision on 07/02/2023. He initially healed well and 6 weeks after surgery, developed increased swelling and pain in the hand. We tried a course of steriods and antibiotics but when he stopped the antibiotics, the swelling and pain returned. On 08/19/2023, he underwent an left ring and left small finger I&D. He was evaluated by infectious disease and a PICC line was placed. Culture was negative. He will follow up with ID on discharge. The incisions are healing well. Vital signs and labs are stable. He is orthopedically stable for discharge today with close follow up in our office and infectious disease. Pertinent Studies: Laboratory Tests 08/18/23 19:25 WBC 11.0 H RBC 4.84 Hgb 16.8 Hct 48.7 MCV 100.6 H Patient Condition at Discharge: Stable Plan - Discharge Summary New Discharge Prescriptions: New metroNIDAZOLE [Flagyl] 500 mg PO TID #42 tab cefTRIAXone [Rocephin] 2,000 mg IVP Q24HR #14 each HYDROcodone/APAP 10-325MG [[place] 10-325] 0.5 tab PO Q6HR PRN #5 tab PRN Reason: Pain No Action amLODIPine [Norvasc] 2.5 mg PO DAILY Lisinopril-Hctz 20-12.5 mg [Zestoretic 20-12.5] 1 tab PO DAILY Discharge Medication List Lisinopril-Hctz 20-12.5 mg [Zestoretic 20-12.5] 1 tab PO DAILY 08/18/23 [History] amLODIPine [Norvasc] 2.5 mg PO DAILY 08/18/23 [History] HYDROcodone/APAP 10-325MG [[place] 10-325] 0.5 tab PO Q6HR PRN #5 tab 08/22/23 [Rx] cefTRIAXone [Rocephin] 2,000 mg IVP Q24HR #14 each 08/22/23 [Rx] metroNIDAZOLE [Flagyl] 500 mg PO TID #42 tab 08/22/23 [Rx] Follow up Appointment(s)/Referral(s): Melissa Fleming DO [Doctor of Osteopathic Medicine] - 08/28/23 1:00 pm (Follow up in the office with Dr. Fleming as scheduled for you) [facility]fusion [NON-STAFF] - As Needed ('s office will call you with your first appointment time for tomorrow.) None,Stated [Primary Care Provider] - 1-2 days Val Howe MD [STAFF PHYSICIAN] - 09/02/23 2:15 pm Activity/Diet/Wound Care/Special Instructions: -Keep incisions clean and dry May shower and wash the hand Cover with gauze. Work on range of motion of the fingers Follow up with Dr. Fleming next week, Saturday or . Call [facility] with any questions or concerns, . Discharge Disposition: HOME SELF-CARE
[2023-08-22 17:00] LABS: Basophils # (A) 0.05 X 10*3/uL (0.00-0.10); Basophils % (A) 0.6 %; Eosinophils # (A) 0.16 X 10*3/uL (0.04-0.35); Eosinophils % (A) 2.1 %; HCT 47.8 % (39.6-50.0); HGB 16.2 d/dL (13.0-17.0); Lymphocytes # (A) 1.98 X 10*3/uL (0.90-5.00); Lymphocytes % (A) 25.6 %; MCH 34.2 pg (27.0-32.0); MCHC 33.9 d/dL (32.0-37.0); MCV 101.1 FL (80.0-97.0); Mean Platelet Volume 9.4 FL (9.5-12.2); Monocytes # (A) 0.48 X 10*3/uL (0.20-1.00); Monocytes % (A) 6.2 %; NRBC Per 100 WBC 0 X 10*3/uL (0.00-0.01); Neutrophils # (A) 5.05 X 10*3/uL (1.80-7.70); Neutrophils % (A) 65.2 %; Platelet Count 265 X 10*3/uL (140-440); RBC 4.73 X 10*6/uL (4.40-5.60); RDW 12.6 % (11.5-14.5); WBC 7.74 X 10*3/uL (4.50-10.00)
[2023-08-22 21:25] LABS: Blood Urea Nitrogen 9.9 mg/dL (9.0-27.0); Calcium 9.3 mg/dL (8.7-10.3); Carbon Dioxide 22.8 mmol/L (21.6-31.8); Chloride 102 mmol/L (96-109); Glucose 118 mg/dL (70-110); Potassium 4.4 mmol/L (3.5-5.5); Sodium 139 mmol/L (135-145)
--- NOTE | 2023-08-23 06:53 | CDI ---
Documentation Clarification Form Date: 08/23/2023 06:34:32 AM From: Blanka Blakely Admit Date: 08/18/2023 03:05:00 PM Patient Name: Rg Frank Visit Number: [id number] Discharge Date: 08/21/2023 08:15:00 PM ATTENTION: The Clinical Documentation Specialists (CDI) and [facility] Coding Staff appreciate your assistance in clarifying documentation. Please respond to the clarification below the line at the bottom and electronically sign. The CDI & [facility] Coding staff will review the response and follow-up if needed. Please note: Queries are made part of the Legal Health Record. If you have any questions, please contact the author of this message via ITS. Dr. Fracisco Aiken Conflicting documentation has been found in the medical record. As attending physician, please provide clarification. Type 2 NSTEMI Per cardiac consult and PN 08/21 NSTEMI Per discharge summary History/Risk Factors: cardiac arrest, CAD, shock, ATN, Acute respiratory failure on a vent. Clinical Indicators: Elevated troponins Treatment: heparin drip, vasopressors Please clarify which diagnosis is most appropriate: [ ] Type II NSTEMI [ ] NSTEMI [ ] Other (please specify) [ ] Unable to determine MTDD
== END 2023-08-22 16:10 | disposition home or self-care (01) | DRG 858 ==
LOC: EC 18:59 → 4SSUR 19:16 → 6NMEDSUR 20:08
PROVIDERS: ADMIT Orthopaedic Surgery Hand Surgery; ATTEND Orthopaedic Surgery Hand Surgery
PROC: 0LB80ZZ Excision of Left Hand Tendon, Open Approach (ICD-10-PCS; principal; 2023-08-19 09:20)
PROC: 02HV33Z Insertion of Infusion Device into Superior Vena Cava, Percutaneous Approach (ICD-10-PCS; 2023-08-22)
DX: T81.49XA Infection following a procedure, other surgical site, initial encounter (principal); E78.5 Hyperlipidemia, unspecified; R73.03 Prediabetes; F17.210 Nicotine dependence, cigarettes, uncomplicated; I10 Essential (primary) hypertension; G43.909 Migraine, unspecified, not intractable, without status migrainosus; I25.10 Atherosclerotic heart disease of native coronary artery without angina pectoris; M65.142 Other infective (teno)synovitis, left hand; Z79.899 Other long term (current) drug therapy; Z88.2 Allergy status to sulfonamides; Z28.21 Immunization not carried out because of patient refusal; H93.8X2 Other specified disorders of left ear; Z86.14 Personal history of Methicillin resistant Staphylococcus aureus infection; K21.9 Gastro-esophageal reflux disease without esophagitis; M72.0 Palmar fascial fibromatosis [Dupuytren]
CPT/HCPCS: 36573; 80048; 80053; 80202; 82565; 83605; 83735; 85025; 85610; 85730; 86140; 86850; 86900; 86901; 87040; 87070; 87075; 87102; 87205; 96361; 96365; 96375; 99285

== ENCOUNTER 2024-02-27 22:24 | Emergency (ER) | payer BC ==
[2024-02-27 23:02] VITALS: RESP 16
--- NOTE | 2024-02-27 23:23 | ED ---
General Adult HPI - General Chief complaint: Skin/Abscess/Foreign Body Stated complaint: insect bite Time Seen by Provider: 02/27/24 22:50 Source: patient Mode of arrival: ambulatory Limitations: no limitations - History of Present Illness Initial comments: 53-year-old male presenting with chief complaint of left wrist. Patient states that earlier today he felt a sudden sharp pain to the wrist and then saw small puncture, he assumes this is from a bug bite. States that throughout the day he has been having more swelling and tenderness around the wrist. He denies any known allergies. He is having no difficulty breathing or swallowing. No swelling or redness of the hand. Patient has baseline full range of motion of the hand. No fevers or chills. - Related Data Home Medications Medication Instructions Recorded Confirmed Lisinopril-Hctz 20-12.5 mg 1 tab PO DAILY 08/18/23 08/18/23 [Zestoretic 20-12.5] amLODIPine [Norvasc] 2.5 mg PO DAILY 08/18/23 08/18/23 Previous Rx's Medication Instructions Recorded HYDROcodone/APAP 10-325MG [[place] 0.5 tab PO Q6HR PRN #5 tab 08/22/23 10-325] cefTRIAXone [Rocephin] 2,000 mg IVP Q24HR #14 each 08/22/23 metroNIDAZOLE [Flagyl] 500 mg PO TID #42 tab 08/22/23 Cephalexin [Keflex] 500 mg PO Q6HR 7 Days #28 cap 02/27/24 Doxycycline [Vibramycin] 100 mg PO BID 7 Days #14 capsule 02/27/24 methylPREDNISolone Dose Pack 4 mg PO DIRECTED #1 packet 02/27/24 [Medrol Dose Pack] Allergies Allergy/AdvReac Type Severity Reaction Status Date / Time sulfamethoxazole Allergy Rash/Hives/ Verified 02/27/24 22:47 [From Bactrim] Nausea trimethoprim [From Bactrim] Allergy Rash/Hives/ Verified 02/27/24 22:47 Nausea Review of Systems ROS Statement: Those systems with pertinent positive or pertinent negative responses have been documented in the HPI. ROS Other: All systems not noted in ROS Statement are negative. Past Medical History Past Medical History: Chest Pain / Angina, GERD/Reflux, Hyperlipidemia, Hypertension, Respiratory Disorder Additional Past Medical History / Comment(s): dx February 2014 pleurisy, acute bronchitis,migraines, states had chest pains from pleurisy, borderline diabetic History of Any Multi-Drug Resistant Organisms: MRSA Date of last positivie culture/infection: 06/04/17 MDRO Source:: leg Past Surgical History: Appendectomy, Hernia Repair, Orthopedic Surgery Additional Past Surgical History / Comment(s): left ear removed (tumor), robinson knee surgeries Past Anesthesia/Blood Transfusion Reactions: Previous Problems w/ Anesthesia Additional Past Anesthesia/Blood Transfusion Reaction / Comment(s): takes longer to come out Past Psychological History: No Psychological Hx Reported Smoking Status: Current every day smoker Past Alcohol Use History: Occasional Past Drug Use History: None Reported - Past Family History Mother Family Medical History: No Reported History General Exam Limitations: no limitations General appearance: alert, in no apparent distress Head exam: Present: atraumatic, normocephalic Eye exam: Present: normal appearance, EOMI Neck exam: Present: normal inspection. Absent: meningismus Respiratory exam: Absent: respiratory distress Cardiovascular Exam: Present: regular rate Left Forearm Wrist exam: Present: full ROM, tenderness, swelling Neurological exam: Present: alert, oriented X3 Psychiatric exam: Present: normal affect, normal mood Skin exam: Present: warm, dry Course Vital Signs 02/27/24 02/27/24 22:46 23:46 Temperature 97.5 F L 97.6 F Pulse Rate 70 75 Respiratory 16 16 Rate Blood Pressure 126/85 125/83 O2 Sat by Pulse 97 97 Oximetry Medical Decision Making - Medical Decision Making Was pt. sent in by a medical professional or institution (, PA, UNDERCOVER AGENT, urgent care, hospital, or skilled nursing...) When possible be specific @ -No Did you speak to anyone other than the patient for history (EMS, parent, family, police, friend...)? What history was obtained from this source @ -No Did you review nursing and triage notes (agree or disagree)? Why? @ -I reviewed and agree with nursing and triage notes Were old charts reviewed (outside hosp., previous admission, EMS record, old EKG, old radiological studies, urgent care reports/EKG's, skilled nursing records)? Report findings @ -No old charts were reviewed Differential Diagnosis (chest pain, altered mental status, abdominal pain women, abdominal pain men, vaginal bleeding, weakness, fever, dyspnea, syncope, headache, dizziness, GI bleed, back pain, seizure, CVA, palpatations, mental health, musculoskeletal)? @ -Differential Musculoskeletal Muscular strain, contusion, ligament sprain, fracture, arthritis, septic arthritis, bursitis, cellulitis, muscle spasm, nerve compression, DVT, arterial occlusion, herpes zoster, electrolyte abnormality, tumor.... This is not meant to be in all inclusive list EKG interpreted by me (3pts min.). @ -As above X-rays interpreted by me (1pt min.). @ -None done CT interpreted by me (1pt min.). @ -None done U/S interpreted by me (1pt. min.). @ -None done What testing was considered but not performed or refused? (CT, X-rays, U/S, labs)? Why? @ -None What meds were considered but not given or refused? Why? @ -None Did you discuss the management of the patient with other professionals (professionals i.e. , PA, UNDERCOVER AGENT, lab, RT, psych nurse, director social service, chief controller tower, teacher, officer captain, caseworker)? Give summary @ -No Was smoking cessation discussed for >3mins.? @ -No Was critical care preformed (if so, how long)? @ -No Were there social determinants of health that impacted care today? How? (Homelessness, low income, unemployed, alcoholism, drug addiction, transportation, low edu. Level, literacy, decrease access to med. care, snf, rehab)? @ -No Was there de-escalation of care discussed even if they declined (Discuss DNR or withdrawal of care, Hospice)? DNR status @ -No What co-morbidities impacted this encounter? (DM, HTN, Smoking, COPD, CAD, Cancer, CVA, ARF, Chemo, Hep., AIDS, mental health diagnosis, sleep apnea, morbid obesity)? @ -None Was patient admitted / discharged? Hospital course, mention meds given and route, prescriptions, significant lab abnormalities, going to OR and other per tinent info. @ -53-year-old male presenting with chief complaint of pain and swelling to the left wrist. Patient assumes that he had a bug bite at some point today, he felt a sharp pain and then saw small puncture near the wrist. Some tenderness and swelling that has been increasing around the wrist. On exam there is some tenderness, no obvious erythema. Patient has baseline full range of motion. Patient will be treated with Solu-Medrol, Benadryl, and antibiotics. Will use Keflex and doxycycline given his history of MRSA. He is educated on alarm symptoms that should prompt reevaluation. Discharged home. Follow-up with PCP. Report back to ER with any new or worsening symptoms. Discussed return parameters and answered all questions. Patient conveyed verbal understanding and agreed to the plan. I discussed this case in detail with my attending Dr. Perez Undiagnosed new problem with uncertain prognosis? @ -No Drug Therapy requiring intensive monitoring for toxicity (Heparin, Nitro, Insulin, Cardizem)? @ -No Were any procedures done? @ -No Diagnosis/symptom? @ -Insect bite Acute, or Chronic, or Acute on Chronic? @ -Acute Uncomplicated (without systemic symptoms) or Complicated (systemic symptoms)? @ -Uncomplicated Side effects of treatment? @ -No Exacerbation, Progression, or Severe Exacerbation? @ -No Poses a threat to life or bodily function? How? (Chest pain, [place], NH, pneumonia, PE, COPD, DKA, ARF, appy, cholecystitis, CVA, Diverticulitis, Homicidal, Suicidal, threat to staff... and all critical care pts) @ -Low likelihood Disposition Clinical Impression: Insect bite Disposition: HOME SELF-CARE Condition: Good Instructions (If sedation given, give patient instructions): Cellulitis (ED), Insect Bite or Sting (ED) Additional Instructions: Follow-up with PCP. Report back to ER with any new or worsening symptoms. Take Benadryl as needed Prescriptions: Cephalexin [Keflex] 500 mg PO Q6HR 7 Days #28 cap methylPREDNISolone Dose Pack [Medrol Dose Pack] 4 mg PO DIRECTED #1 packet Doxycycline [Vibramycin] 100 mg PO BID 7 Days #14 capsule Is patient prescribed a controlled substance at d/c from ED?: No Referrals: Braden Alvarenga MD [Primary Care Provider] - 1-2 days Time of Disposition: 23:21
[2024-02-27] MEDS: CEPHALEXIN 500 MG CAP PO STA (23:36)
[2024-02-27] MEDS: diphenhydrAMINE 50 MG CAP PO STA (23:36)
[2024-02-27] MEDS: methylPREDNISolone SOD SUCCI 125 MG/2 ML VIAL IM ONE (23:36)
[2024-02-27] MEDS: DOXYCYCLINE 100 MG CAP PO STA (23:36)
[2024-02-28 00:28] VITALS: BP 125/83; PULSE 75; TEMP 97.6
== END 2024-02-27 23:48 | disposition home or self-care (01) ==
LOC: EC 22:24
DX: S60.862A Insect bite (nonvenomous) of left wrist, initial encounter (principal); F17.200 Nicotine dependence, unspecified, uncomplicated; Z88.1 Allergy status to other antibiotic agents; Z88.2 Allergy status to sulfonamides; W57.XXXA Bitten or stung by nonvenomous insect and other nonvenomous arthropods, initial encounter
CPT/HCPCS: 99282; 96372; J2919

== ENCOUNTER → 2024-08-22 | Outpatient (CLI) | payer BC ==
--- NOTE | 2024-08-22 19:46 | MR ---
EXAMINATION TYPE: MR brain wo con DATE OF EXAM: 08/22/2024 3:13 PM COMPARISON: CT brain C-spine 02/17/2016, CT brain 05/24/2012. 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 No gadolinium was gi jina. FINDINGS: The toscano-white junctions, ventricular system, and cisterns appear unremarkable. Cerebral parenchymal volume is age-appropriate. No suspicious FLAIR signal abnormality. Midline structures show no abnorm ality. Diffusion-weighted imaging shows no evidence of restricted diffusion. The susceptibility weigh gio images do not reveal any evidence for micro-hemorrhage. The bone marrow signal is within normal limits. The globes are unremarkable. Mucosal thickening of the bilateral sphenoid sinuses with air-fluid level. Moderate mucosal thickenin g of the right maxillary sinus and mild of the left maxillary sinus with fluid level. Moderate mucosa l thickening of the ethmoid sinuses and right frontal sinus. The left frontal sinus is clear. IMPRESSION: 1. No evidence of intracranial mass or acute/subacute infarct. 2. Moderate paranasal sinus disease with scattered air-fluid levels suggesting acute sinusitis. Corre late clinically. [facility], , 08/22/2024 7:44 PM
--- NOTE | 2024-08-22 19:55 | MR ---
EXAMINATION TYPE: MR angio head wo/neck wo/w con DATE OF EXAM: 08/22/2024 COMPARISON: MRI brain 08/22/2024, CT brain C-spine 02/17/2016 HISTORY: I65.2, CVA L Wai, right leg numbness, dropped foot TECHNIQUE: Multiplanar, multi-sequence imaging as well as [id number] and phase contrast imaging w as performed of the head and neck vasculature. The patient was given 8 cc of Gadavist intravenously. 3-D reformatted images and maximum intensity projection reformatted images were submitted for evalua tion. NASCET criteria was utilized. FINDINGS: MRA HEAD: There is no evidence for focal stenosis, large vessel occlusion, or discrete aneurysm. MRA NECK: RIGHT CAROTID SYSTEM: The right common carotid artery, internal carotid artery, and external carotid artery do not demonstrate any significant stenosis. LEFT CAROTID SYSTEM: The left common carotid artery, internal carotid artery, and external carotid ar chris do not demonstrate any significant stenosis. The origins of the great vessels and vertebral arteries appear unremarkable. The right vertebral art viraj is dominant. Left vertebral artery is diminutive within the V4 segment. IMPRESSION: 1. No evidence for focal stenosis, occlusion or aneurysm. 2. No significant stenosis involving the bilateral carotid arterial systems. [facility], , 08/22/2024 7:52 PM
== END | disposition home or self-care (01) ==
LOC: RADMRIMAIN 14:34
PROVIDERS: ATTEND Psychiatry & Neurology Neurology
CPT/HCPCS: 70544; 70549; 70551